=== PATIENT | female | born 1960 | race Caucasian/White ===

== ENCOUNTER 2018-09-03 21:13 | Observation (INO) ==
[2018-09-03 21:50] LABS: Basophils % 0.3 % (0.1-2.0); Eosinophils # 0.4 K/mm3 (0.0-0.4); Eosinophils % 4.8 % (0.1-12.0); Hematocrit 39.3 % (37.0-47.0); Hemoglobin 12.6 g/dL (12.2-16.2); Lymphocytes # 2.7 K/mm3 (0.7-4.5); Mean Corpuscular HGB Conc 32.2 g/dL (31.8-35.4); Mean Corpuscular Volume 85.1 fl (81-99); Mean Platelet Volume 7.3 fl (7.4-10.4); Monocytes # 0.5 K/mm3 (0.1-1.0); Monocytes % 6.1 % (1.7-9.3); Neutrophils # 4.2 K/mm3 (1.8-7.8); Neutrophils % 53.8 % (37.0-80.0); Platelet Count 234 K/mm3 (142-424); Red Blood Count 4.61 M/mm3 (4.20-5.40); Red Cell Distribution Width 13.4 % (11.5-17.5); White Blood Count 7.7 K/mm3 (4.8-10.8)
--- NOTE | 2018-09-03 21:51 | Emergency Department Note ---
ED Disposition Clinical Impression: Abscess of skin or subcutaneous tissue Qualifiers: Site of cutaneous abscess: other site Qualified Code(s): L02.818 - Cutaneous abscess of other sites Disposition: Admitted as Observation Condition on Discharge: Good Instructions: DI for Skin Abscess Referrals: Provider,Referral, [Primary Care Provider] - - Critical Care Critical Care Time: No Attestation: On 09/03/18, the high probability of a clinically significant, sudden or life threatening deterioration of the following system(s) required my full and direct attention, intervention and personal management. The time I documented below is in addition to time spent performing reported procedures but includes the following listed in this critical care notation. Medical Decision Making - Medical Records Medical records reviewed: Yes: I reviewed the patient's medical records. - [place] Inquiry Pt receiving controlled substance: No Vital Signs: 09/03/18 21:22 09/03/18 21:54 Temperature 98.0 F Temperature Source Oral Pulse Rate [Right Radial] 77 Respiratory Rate 18 Blood Pressure [Right Arm] 218/112 H 160/80 H Blood Pressure Mean [Right Arm] 147 106 Blood Pressure Source [Right Arm] Manual Cuff/ Auscultation 02 Sat by Pulse Oximetry 97 - Lab Data Lab results reviewed: Yes: I reviewed the patient's lab results. Lab Results 09/03/18 21:30: WBC 7.7, RBC 4.61, Hgb 12.6, Hct 39.3, MCV 85.1, MCH 27.4, MCHC 32.2, RDW 13.4, Plt Count 234, MPV 7.3 L, Neut % (Auto) 53.8, Lymph % (Auto) 35.0, Wolfe % (Auto) 6.1, Eos % (Auto) 4.8, Baso % (Auto) 0.3, Neut # (Auto) 4.2, Lymph # (Auto) 2.7, Wolfe # (Auto) 0.5, Eos # (Auto) 0.4, Baso # (Auto) 0.0 Result diagrams: 09/03/18 21:30 Orders (Tests/Meds): ED MEDICATIONS Generic Name Dose Route Start Last Admin Trade Name Freq PRN Reason Stop Dose Admin Sodium Chloride 1,000 mls @ 999 mls/hr 09/03/18 21:30 09/03/18 21:36 Sod Chlor 0.9% 1000ml Bag IV 09/03/18 22:30 999 mls/hr .Q1H1M GUILLERMINA Administration ORDERS Category Date Time Status C-Reactive Protein Stat Lab 09/03/18 21:30 Received Complete Blood Count Auto Diff Stat Lab 09/03/18 21:30 Results Comprehensive Metabolic Panel Stat Lab 09/03/18 21:30 Received Erythrocyte Sedimentation Rate Stat Lab 09/03/18 21:30 Results Lactic Acid Stat Lab 09/03/18 21:30 Received Blood Culture Stat Micro 09/03/18 21:36 Received - Physician Consults Physician Consulted: otf Reason -: Admission Skin/Abscess/FB HPI - General Chief complaint: Skin/Abscess/Foreign Body Stated complaint: spot on breast Time Seen by Provider: 09/03/18 21:30 Mode of Arrival: Ambulatory Source of Information: Patient, Relative, Medical Record Limitations: No Limitations Description of Symptoms (Recalled from ER Triage Doc. by RN): left breast redness, swelling and pain. pt states this has been going on for approx 1 week but today the site "opened up." - History of Present Illness HPI narrative: lt breast reddness and tenderness with sl drainge - has had in past - improved with abx - neg mammogram last yr and has chronic inverted nipple MD complaint: abscess/boil Onset (ago): day(s) Tetanus up to date: unsure Location: chest (lt breast ) Severity: moderate Associated symptoms: denies other symptoms Treatments prior to arrival: none - Related Data Home Medications Medication Instructions Recorded Confirmed Beclomethasone Dipropionate [Qvar 1 - 2 puffs IH NEEDED PRN 09/03/18 09/03/18 Redihaler] Cetirizine HCl 10 mg PO DAILY 09/03/18 09/03/18 Enalapril Maleate 2.5 mg PO BID 09/03/18 09/03/18 Fluticasone/Salmeterol [Advair 1 inh IH BID 09/03/18 09/03/18 250/50mcg Diskus] Metoprolol Tartrate [Lopressor 25 mg PO BID 09/03/18 09/03/18 25mg tablet] Montelukast Sodium [Montelukast 10 mg PO DAILY 09/03/18 09/03/18 10mg Tab] Pantoprazole Sodium [Protonix 20mg 20 mg PO DAILY 09/03/18 09/03/18 Tab] hydroCHLOROthiazide 12.5 mg PO DAILY 09/03/18 09/03/18 [Hydrochlorothiazide 12.5mg Tab] Allergies Allergy/AdvReac Type Severity Reaction Status Date / Time loratadine [From CLARITIN] Allergy Unknown Verified 09/03/18 21:26 [facility] History - Hepatitis A Screen Drug use history?: No High risk sexual behaviors?: No History of sexually transmitted infection?: No Currently employed?: No Childcare worker?: No Do you have indoor plumbing?: Yes Do you have electricity?: Yes Attestation statement:: This patient has been screened for Hepatitis A risk factors. I have reviewed the patient's past medical history: Yes Medical History: Denies:: Diabetes Mellitus Type 1, Diabetes Mellitus Type 2 - Social History Smoking Status: Current every day smoker # Packs/Day (cigarettes): 1 Alcohol Intake: never Occupational Status: unemployed ROS Obtained: Yes All systems reviewed & no additional complaints - Constitutional Constitutional: Denies fever(s) - Eyes Eyes: Denies change in vision - ENT Ears, Nose, Mouth, and Throat: Denies sore throat - Cardiovascular Cardiovascular: Denies chest pain - Respiratory Respiratory: No cough - Gastrointestinal Gastrointestingal: Denies: abdominal pain - Genitourinary Female Genitourinary: Denies hematuria - Musculoskeletal Musculoskeletal: Denies joint pain - Integumentary/Breasts Skin/Breast: Reports as per HPI, Reports boil, Reports rash - Neurologic Neurologic: Denies seizure-like activity Physical Exam - General General appearance: alert - Head Head exam: normocephalic - Eye Eye exam: Present: PERRL, EOMI - ENT ENT exam: Present: normal oropharynx - Neck Neck exam: Absent: trachea midline - Respiratory Respiratory exam: Absent: respiratory distress - Cardiovascular Cardiovascular exam: Present: regular rate - Extremities Exam Extremities exam: Present: full ROM - Neurological Exam Neurological exam: Present: alert, oriented X3, CN II-XII intact - Psychiatric Psychiatric exam: Present: normal affect - Skin Skin exam: Present: other (tender lt breast with 2x2 abscess -)
[2018-09-03 22:06] LABS: Albumin Level 3.5 gm/dL (3.4-5.0); Albumin/Globulin Ratio 1.2 (1.1-1.8); Bilirubin,Total 0.7 mg/dL (0.2-1.0); C-Reactive Protein 0.4 mg/L (0.0-0.9); Globulin 2.9 gm/dl (1.3-3.2); Total Protein,Serum 6.4 gm/dL (6.4-8.2)
[2018-09-03 22:43] LABS: Erythrocyte Sedimentation Rate 31 mm/hr (0-30)
[2018-09-04 05:59] LABS: Basophils % 0.4 % (0.1-2.0); Eosinophils # 0.3 K/mm3 (0.0-0.4); Eosinophils % 5.4 % (0.1-12.0); Hematocrit 34.5 % (37.0-47.0); Hemoglobin 11.3 g/dL (12.2-16.2); Lymphocytes # 2.1 K/mm3 (0.7-4.5); Lymphocytes % 34.3 % (10-50); Mean Corpuscular HGB Conc 32.8 g/dL (31.8-35.4); Mean Corpuscular Volume 86.6 fl (81-99); Mean Platelet Volume 7.1 fl (7.4-10.4); Monocytes # 0.4 K/mm3 (0.1-1.0); Monocytes % 7.4 % (1.7-9.3); Neutrophils # 3.2 K/mm3 (1.8-7.8); Neutrophils % 52.5 % (37.0-80.0); Platelet Count 184 K/mm3 (142-424); Red Blood Count 3.98 M/mm3 (4.20-5.40); Red Cell Distribution Width 13.4 % (11.5-17.5)
[2018-09-04 06:07] LABS: Anion Gap 10.7 mEq/L (5-15); Calcium 8.7 mg/dL (8.5-10.1)
--- NOTE | 2018-09-04 08:27 | Pharmacy Consult Notes ---
- Pharmacy Consult Date: 09/04/18 Time: 08:25 Referring provider: DR. VILLARREAL Reason for Consult:: VANCOMYCIN DOSING Allergies and ADEs:: Allergies Allergy/AdvReac Type Severity Reaction Status Date / Time peanut Allergy Severe Difficulty Verified 09/04/18 03:00 Breathing loratadine [From CLARITIN] Allergy Unknown Verified 09/03/18 21:26 corn Allergy Verified 09/04/18 03:00 tomato Allergy Verified 09/04/18 03:00 Home Medications:: Home Medications Medication Instructions Recorded Confirmed Type Beclomethasone Dipropionate [Qvar 1 - 2 puffs IH NEEDED PRN 09/03/18 09/04/18 History Redihaler] Cetirizine HCl 10 mg PO HS 09/03/18 09/04/18 History Enalapril Maleate 2.5 mg PO BID 09/03/18 09/03/18 History Fluticasone/Salmeterol [Advair 1 inh IH BID 09/03/18 09/04/18 History 250/50mcg Diskus] Metoprolol Tartrate [Lopressor 25 mg PO BID 09/03/18 09/03/18 History 25mg tablet] Montelukast Sodium [Montelukast 10 mg PO DAILY 09/03/18 09/04/18 History 10mg Tab] Pantoprazole Sodium [Protonix 20mg 40 mg PO BID 09/03/18 09/03/18 History Tab] hydroCHLOROthiazide 12.5 mg PO DAILY 09/03/18 09/03/18 History [Hydrochlorothiazide 12.5mg Tab] Height: 1.7 m Weight: 73.567 kg Laboratory Results:: Laboratory Results - last 24 hr 09/03/18 21:30: WBC 7.7, RBC 4.61, Hgb 12.6, Hct 39.3, MCV 85.1, MCH 27.4, MCHC 32.2, RDW 13.4, Plt Count 234, MPV 7.3 L, Neut % (Auto) 53.8, Lymph % (Auto) 35.0, [place] % (Auto) 6.1, Eos % (Auto) 4.8, Baso % (Auto) 0.3, Neut # (Auto) 4.2, Lymph # (Auto) 2.7, [place] # (Auto) 0.5, Eos # (Auto) 0.4, Baso # (Auto) 0.0, ESR 31 H 09/03/18 21:30: Sodium 143, Potassium 4.0, Chloride 106, Carbon Dioxide 27, Anion Gap 14.0, BUN 23 H, Creatinine 0.73, Estimated Creat Clear 87, Estimated GFR 82, Est GFR ( Amer) 99, Glucose 108 H, Calcium 9.0, Total Bilirubin 0.7, AST 26, ALT 46, Alkaline Phosphatase 99, C-Reactive Protein 0.4, Total Protein 6.4, Albumin 3.5, Globulin 2.9, Albumin/Globulin Ratio 1.2 09/03/18 21:30: Lactate 0.5 09/04/18 05:15: WBC 6.0, RBC 3.98 L, Hgb 11.3 L D, Hct 34.5 L, MCV 86.6, MCH 28.4, MCHC 32.8, RDW 13.4, Plt Count 184, MPV 7.1 L, Neut % (Auto) 52.5, Lymph % (Auto) 34.3, [place] % (Auto) 7.4, Eos % (Auto) 5.4, Baso % (Auto) 0.4, Neut # (Auto) 3.2, Lymph # (Auto) 2.1, [place] # (Auto) 0.4, Eos # (Auto) 0.3, Baso # (Auto) 0.0 09/04/18 05:15: Sodium 142, Potassium 3.7, Chloride 109 H, Carbon Dioxide 26, Anion Gap 10.7, BUN 17 D, Creatinine 0.66, Estimated Creat Clear 108, Estimated GFR 92, Est GFR ( Amer) 111, Glucose 132 H D, Calcium 8.7 Medical History: Reports:: Hypertension Denies:: Cancer, Diabetes Mellitus Type 1, Diabetes Mellitus Type 2, MRSA Assessment and Plan - Assessment and plan all Dx Assessment and Plan for all problems:: BASED ON PATIENT'S FACTORS, RECOMMEND CONTINUING WITH VANCOMYCIN 1500 MG Q12H AT THIS TIME STARTING WITH 0900 DOSE. PHARMACY WILL FOLLOW DAILY AND ADJUST APPROPRIATE. LISSETTE SKINNER, PHARMD
--- NOTE | 2018-09-04 09:00 | History & Physical Report ---
*Admission Date: 09/04/18 <Estela Childress 09/04/18 09:08> *Chief complaint: Breast abscess <Estela Childress 09/04/18 09:08> *History of present illness: Ms. Vega is a 58-year-old female from [facility] who is visiting her children here in [place] She began having left breast inflammation last week. She was on vacation at [place] and continued on with her normal activities without problems. After returning to [place] the left breast became sore, red, and began to drain. With the increase in pain and with the drainage she thus presented to the emergency room. She does give a history of having previous breast abscess in the same place over the last few years. She is usually treated with p.o. antibiotics and it resolves. She was evaluated in the emergency room and admitted for further evaluation and treatment with a surgical consult. She was started on IV vancomycin. This a.m. the redness and the pain is a little bit better. <Estela Childress 09/04/18 09:08> [facility] History Medical History: Reports:: Gastroesophageal Reflux Disease(GERD), Hypertension, Palpitations Denies:: Cancer, Chronic Obstructive Pulmonary Disease (COPD), Diabetes Mellitus Type 1, Diabetes Mellitus Type 2, MRSA <Estela Childress 09/04/18 09:08> *Have you ever received a pneumonia vaccine?: No <Estela Childress 09/04/18 09:08> *Have you received a flu vaccine this season?: No <Estela Childress 09/04/18 09:08> Other Medical History: Reports: Thyroid Disease (GOITER) <Estela Childress 09/04/18 09:08> Comment:: She has environmental allergies and frequent sinusitis <Estela Childress 09/04/18 09:08> Laterality Cases: Bilateral: Tonsillectomy <Estela Childress 09/04/18 09:08> Other Surgeries: Yes: Appendectomy, Dilation and Curettage, Hysterectomy-Partial <Estela Childress 09/04/18 09:08> Comment: She has had 2 ear surgeries <Estela Childress 09/04/18 09:08> - *Social History Educational Level: Completed High School <Estela Childress 07/22/19 09:08> Smoking Status: Current every day smoker <Estela Childress 09/04/18 09:08> # Packs/Day (cigarettes): 1 <Estela Childress 09/04/18 09:08> Alcohol Intake: current <Estela Childress 09/04/18 09:08> Alcohol Intake Frequency:: holidays/special occasions only <ChildressEstela 09/04/18 09:08> *Occupational Status:: unemployed, retired, disabled <FiorEstela Gregg 09/04/18 09:08> Housing: house <FiorEstela 09/04/18 09:08> Household Members: none <ChildressEstela Gregg 09/04/18 09:08> *Travel in the last 8 weeks: Inside the [place] <ChildressEstela 09/04/18 09:08> - Psychiatric History Expresses thoughts of harming self/others: None <Childress,Estela 09/04/18 09:08> Suicide Plan Description: No Plan <Estela Childress 09/04/18 09:08> Family Hx:: Anemia, Asthma, Cancer, Diabetes, Heart Attack, Hypertension, Kidney Disease, Stroke, Thyroid Disorder <ChildressEstela 09/04/18 09:08> Review of Systems - Constitutional Denies body ache(s), Denies chills, Denies fever(s), Denies headache(s) <FiorEstela 09/04/18 09:08> - ENT Denies ear pain, Denies headache(s), Denies nasal congestion <Childress,Estela 09/04/18 09:08> Comments: States she had a sinusitis while on vacation which is better now <FiorEstela 09/04/18 09:08> - *Cardiovascular Denies chest pain, Denies shortness of breath, Denies leg swelling <FiorEstela 09/04/18 09:08> - *Respiratory Denies chest congestion, Denies cough, Denies shortness of breath, Denies shortness of breath with activity, Denies coughing up blood <FiorEstela 09/04/18 09:08> - *Gastrointestinal Reports heartburn (States she has terrible heartburn with reflux. Takes a daily PPI), Denies abdominal pain, Denies change in stools, Denies nausea, Denies vom iting <ChildressEstela - 09/04/18 09:08> - *Genitourinary Denies difficulty urinating <FiorEstela - 09/04/18 09:08> - *Musculoskeletal Denies abnormal walking <Estela Childress - 09/04/18 09:08> - *Neurologic Denies behavioral changes, Denies dizziness, Denies seizure-like activity <FiorEstela - 09/04/18 09:08> Meds Home Medications Medication Instructions Recorded Confirmed Type Beclomethasone Dipropionate [Qvar 1 puffs IH BID 09/03/18 09/04/18 History Redihaler] Cetirizine HCl 10 mg PO HS 09/03/18 09/04/18 History Enalapril Maleate 2.5 mg PO BID 09/03/18 09/03/18 History Fluticasone/Salmeterol [Advair 1 inh IH BID 09/03/18 09/04/18 History 250/50mcg Diskus] Metoprolol Tartrate [Lopressor 25 mg PO BID 09/03/18 09/03/18 History 25mg tablet] Montelukast Sodium [Montelukast 10 mg PO DAILY 09/03/18 09/04/18 History 10mg Tab] Pantoprazole Sodium [Protonix 20mg 40 mg PO BID 09/03/18 09/03/18 History Tab] hydroCHLOROthiazide 12.5 mg PO DAILY 09/03/18 09/03/18 History [Hydrochlorothiazide 12.5mg Tab] Albuterol Sulfate [Albuterol 1 - 2 puffs IH Q4HP PRN 09/04/18 09/04/18 History Sulfate Hfa] Meloxicam 15 mg PO DAILY 09/04/18 09/04/18 History SUMAtriptan succinate [Imitrex 25 mg PO DAILYP PRN 09/04/18 09/04/18 History 25mg Tablet] <Sarmad Matthews - 09/04/18 12:33> Allergies Allergy/AdvReac Type Severity Reaction Status Date / Time peanut Allergy Severe Difficulty Verified 09/04/18 03:00 Breathing loratadine [From CLARITIN] Allergy Unknown Verified 09/03/18 21:26 corn Allergy Verified 09/04/18 03:00 tomato Allergy Verified 09/04/18 03:00 <Sarmad Matthews - 09/04/18 12:33> Exam Vital signs and Labs for Last 24 Hours: Temp Pulse Resp BP Pulse Ox 98.0 F 70 16 150/84 H 93 L 09/04/18 12:15 09/04/18 12:15 09/04/18 12:15 09/04/18 12:15 09/04/18 12:15 Laboratory Results - last 24 hr 09/03/18 21:30: WBC 7.7, RBC 4.61, Hgb 12.6, Hct 39.3, MCV 85.1, MCH 27.4, MCHC 32.2, RDW 13.4, Plt Count 234, MPV 7.3 L, Neut % (Auto) 53.8, Lymph % (Auto) 35.0, [place] % (Auto) 6.1, Eos % (Auto) 4.8, Baso % (Auto) 0.3, Neut # (Auto) 4.2, Lymph # (Auto) 2.7, [place] # (Auto) 0.5, Eos # (Auto) 0.4, Baso # (Auto) 0.0, ESR 31 H 09/03/18 21:30: Sodium 143, Potassium 4.0, Chloride 106, Carbon Dioxide 27, Anion Gap 14.0, BUN 23 H, Creatinine 0.73, Estimated Creat Clear 87, Estimated GFR 82, Est GFR ( Amer) 99, Glucose 108 H, Calcium 9.0, Total Bilirubin 0.7, AST 26, ALT 46, Alkaline Phosphatase 99, C-Reactive Protein 0.4, Total Protein 6.4, Albumin 3.5, Globulin 2.9, Albumin/Globulin Ratio 1.2 09/03/18 21:30: Lactate 0.5 09/04/18 05:15: WBC 6.0, RBC 3.98 L, Hgb 11.3 L D, Hct 34.5 L, MCV 86.6, MCH 28.4, MCHC 32.8, RDW 13.4, Plt Count 184, MPV 7.1 L, Neut % (Auto) 52.5, Lymph % (Auto) 34.3, [place] % (Auto) 7.4, Eos % (Auto) 5.4, Baso % (Auto) 0.4, Neut # (Auto) 3.2, Lymph # (Auto) 2.1, [place] # (Auto) 0.4, Eos # (Auto) 0.3, Baso # (Auto) 0.0 09/04/18 05:15: Sodium 142, Potassium 3.7, Chloride 109 H, Carbon Dioxide 26, Anion Gap 10.7, BUN 17 D, Creatinine 0.66, Estimated Creat Clear 108, Estimated GFR 92, Est GFR ( Amer) 111, Glucose 132 H D, Calcium 8.7 <Sarmad Matthews - 09/04/18 12:33> Temp Pulse Resp BP Pulse Ox 97.8 F 65 20 152/59 H 97 09/04/18 08:00 09/04/18 08:00 09/04/18 08:00 09/04/18 08:00 09/04/18 08:00 Laboratory Results - last 24 hr 09/03/18 21:30: WBC 7.7, RBC 4.61, Hgb 12.6, Hct 39.3, MCV 85.1, MCH 27.4, MCHC 32.2, RDW 13.4, Plt Count 234, MPV 7.3 L, Neut % (Auto) 53.8, Lymph % (Auto) 35.0, [place] % (Auto) 6.1, Eos % (Auto) 4.8, Baso % (Auto) 0.3, Neut # (Auto) 4.2, Lymph # (Auto) 2.7, [place] # (Auto) 0.5, Eos # (Auto) 0.4, Baso # (Auto) 0.0, ESR 31 H 09/03/18 21:30: Sodium 143, Potassium 4.0, Chloride 106, Carbon Dioxide 27, Anion Gap 14.0, BUN 23 H, Creatinine 0.73, Estimated Creat Clear 87, Estimated GFR 82, Est GFR ( Amer) 99, Glucose 108 H, Calcium 9.0, Total Bilirubin 0.7, AST 26, ALT 46, Alkaline Phosphatase 99, C-Reactive Protein 0.4, Total Protein 6.4, Albumin 3.5, Globulin 2.9, Albumin/Globulin Ratio 1.2 09/03/18 21:30: Lactate 0.5 09/04/18 05:15: WBC 6.0, RBC 3.98 L, Hgb 11.3 L D, Hct 34.5 L, MCV 86.6, MCH 28.4, MCHC 32.8, RDW 13.4, Plt Count 184, MPV 7.1 L, Neut % (Auto) 52.5, Lymph % (Auto) 34.3, [place] % (Auto) 7.4, Eos % (Auto) 5.4, Baso % (Auto) 0.4, Neut # ( Auto) 3.2, Lymph # (Auto) 2.1, [place] # (Auto) 0.4, Eos # (Auto) 0.3, Baso # (Auto) 0.0 09/04/18 05:15: Sodium 142, Potassium 3.7, Chloride 109 H, Carbon Dioxide 26, Anion Gap 10.7, BUN 17 D, Creatinine 0.66, Estimated Creat Clear 108, Estimated GFR 92, Est GFR ( Amer) 111, Glucose 132 H D, Calcium 8.7 <FiorEstela - 09/04/18 09:08> I & O for Last 24 hours: Intake & Output 09/01/18 09/02/18 09/03/18 09/04/18 23:59 23:59 23:59 23:59 Intake Total 827 / 827 Output Total 1500 / 1500 Balance -673 / -673 Weight 158 lb 3 oz 162 lb 3 oz <Sarmad Matthews - 09/04/18 12:33> Intake & Output 09/01/18 09/02/18 09/03/18 09/04/18 11:59 11:59 11:59 11:59 Intake Total 527 / 527 Output Total 800 / 800 Balance -273 / -273 Weight 162 lb 3 oz <FiorEstela - 09/04/18 09:08> - Constitutional no acute distress <Estela Childress - 09/04/18 09:08> - *Routine HEENT Exam Head: Present: normocephalic, atraumatic <Estela Childress - 09/04/18 09:08> Eye: Present: PERRL. Absent: conjunctival icterus, scleral injection <Estela Childress - 09/04/18 09:08> ENT: Present: mucous membranes moist, oropharynx clear <Estela Childress 09/04/18 09:08> - *Routine Neck Exam Present: supple, full ROM. Absent: carotid bruit, lymphadenopathy, thyromegaly <Estela Childress 09/04/18 09:08> - *Routine Respiratory Exam Comments: Expiratory wheeze heard in bilateral bases. <Estela Childress 09/04/18 09:08> - *Routine Cardiovascular Exam Present: RRR <Estela Childress 09/04/18 09:08> - *Routine Abdominal Exam Present: soft, normoactive bowel sounds. Absent: tenderness, distended <Estela Childress 09/04/18 09:08> - *Routine Extremities Exam Absent: edema, calf tenderness <Estela Childress 09/04/18 09:08> - *Routine Skin Exam Comments: At approximately the 10 o'clock position in the periareolar location of the left breast there is a an area of a small pustule which is somewhat fluctuant. There is surrounding induration in the regional subareolar location with some cellulitis. <Estela Childress 09/04/18 09:12> - *Routine Neurological Exam Present: alert, oriented X3 <Estela Childress 09/04/18 09:08> Assessment and Plan (1) GERD (gastroesophageal reflux disease) Current visit: Yes Status: Acute Category: Medical Code(s): K21.9 - Gastro-esophageal reflux disease without esophagitis (2) Abscess of skin or subcutaneous tissue Current visit: Yes Status: Acute Qualifiers: Site of cutaneous abscess: other site Qualified Code(s): L02.818 - Cutaneous abscess of other sites Category: Medical Code(s): L02.91 - Cutaneous abscess, unspecified <[place]Sarmad hess - 09/04/18 12:33> (1) GERD (gastroesophageal reflux disease) Current visit: Yes Status: Acute Category: Medical Code(s): K21.9 - Gastro-esophageal reflux disease without esophagitis (2) Abscess of skin or subcutaneous tissue Current visit: Yes Status: Acute Qualifiers: Site of cutaneous abscess: other site Qualified Code(s): L02.818 - Cutaneous abscess of other sites Category: Medical Code(s): L02.91 - Cutaneous abscess, unspecified <Estela Childress - 09/04/18 09:10> - Assessment and plan all Dx Assessment and Plan for all problems:: Saw patient, agree with above note. <Sarmad Matthews - 09/04/18 12:33> See Dr. Luciano consult note. He plans I and D with biopsy today. Continue with IV vancomycin Patient states mammogram is due with the last being approximately a year ago <Estela Childress - 09/04/18 09:12>
--- NOTE | 2018-09-04 09:05 | Consult Report ---
*Admission Date: 09/04/18 *Reason for consult:: Breast abscess *History of present illness: Patient is a pleasant 58-year-old female who is visiting from [facility]. 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 She has apparently undergone thorough work-up with imaging done at [facility] which revealed no radiographic findings. This is usually been treated with courses of antibiotics. She states that this is the third time she has had a flareup. She is recently had increased redness and swelling. She had developed some drainage. She presented to the emergency dep artment overnight where she was seen and evaluated and admitted for inpatient management. Review of Systems - Review of Systems Review of systems:: pertinent systems reviewed and negative unless documented below - *Neurologic Denies seizure-like activity [facility] History Medical History: Reports:: Hypertension Denies:: Cancer, Diabetes Mellitus Type 1, Diabetes Mellitus Type 2, MRSA *Have you ever received a pneumonia vaccine?: No *Have you received a flu vaccine this season?: No Other Medical History: Reports: Thyroid Disease (GOITER) Laterality Cases: Bilateral: Tonsillectomy Other Surgeries: Yes: Appendectomy, Dilation and Curettage, Hysterectomy-Partial - *Social History Educational Level: Completed High School Smoking Status: Current every day smoker # Packs/Day (cigarettes): 1 Alcohol Intake: current Alcohol Intake Frequency:: holidays/special occasions only *Occupational Status:: unemployed, retired, disabled Housing: house Household Members: none *Travel in the last 8 weeks: Inside the [facility] - Psychiatric History Expresses thoughts of harming self/others: None Suicide Plan Description: No Plan Family Hx:: Anemia, Asthma, Cancer, Diabetes, Heart Attack, Hypertension, Kidney Disease, Stroke, Thyroid Disorder Meds Home Medications Medication Instructions Recorded Confirmed Type Beclomethasone Dipropionate [Qvar 1 - 2 puffs IH NEEDED PRN 09/03/18 09/04/18 History Redihaler] Cetirizine HCl 10 mg PO HS 09/03/18 09/04/18 History Enalapril Maleate 2.5 mg PO BID 09/03/18 09/03/18 History Fluticasone/Salmeterol [Advair 1 inh IH BID 09/03/18 09/04/18 History 250/50mcg Diskus] Metoprolol Tartrate [Lopressor 25 mg PO BID 09/03/18 09/03/18 History 25mg tablet] Montelukast Sodium [Montelukast 10 mg PO DAILY 09/03/18 09/04/18 History 10mg Tab] Pantoprazole Sodium [Protonix 20mg 40 mg PO BID 09/03/18 09/03/18 History Tab] hydroCHLOROthiazide 12.5 mg PO DAILY 09/03/18 09/03/18 History [Hydrochlorothiazide 12.5mg Tab] Allergies Allergy/AdvReac Type Severity Reaction Status Date / Time peanut Allergy Severe Difficulty Verified 09/04/18 03:00 Breathing loratadine [From CLARITIN] Allergy Unknown Verified 09/03/18 21:26 corn Allergy Verified 09/04/18 03:00 tomato Allergy Verified 09/04/18 03:00 Exam Vital signs and Labs for Last 24 Hours: Temp Pulse Resp BP Pulse Ox 97.8 F 65 20 152/59 H 97 09/04/18 08:00 09/04/18 08:00 09/04/18 08:00 09/04/18 08:00 09/04/18 08:00 Laboratory Results - last 24 hr 09/03/18 21:30: WBC 7.7, RBC 4.61, Hgb 12.6, Hct 39.3, MCV 85.1, MCH 27.4, MCHC 32.2, RDW 13.4, Plt Count 234, MPV 7.3 L, Neut % (Auto) 53.8, Lymph % (Auto) 35.0, [place] % (Auto) 6.1, Eos % (Auto) 4.8, Baso % (Auto) 0.3, Neut # (Auto) 4.2, Lymph # (Auto) 2.7, [place] # (Auto) 0.5, Eos # (Auto) 0.4, Baso # (Auto) 0.0, ESR 31 H 09/03/18 21:30: Sodium 143, Potassium 4.0, Chloride 106, Carbon Dioxide 27, Anion Gap 14.0, BUN 23 H, Creatinine 0.73, Estimated Creat Clear 87, Estimated GFR 82, Est GFR ( Amer) 99, Glucose 108 H, Calcium 9.0, Total Bilirubin 0.7, AST 26, ALT 46, Alkaline Phosphatase 99, C-Reactive Protein 0.4, Total Prot ein 6.4, Albumin 3.5, Globulin 2.9, Albumin/Globulin Ratio 1.2 09/03/18 21:30: Lactate 0.5 09/04/18 05:15: WBC 6.0, RBC 3.98 L, Hgb 11.3 L D, Hct 34.5 L, MCV 86.6, MCH 28.4, MCHC 32.8, RDW 13.4, Plt Count 184, MPV 7.1 L, Neut % (Auto) 52.5, Lymph % (Auto) 34.3, [place] % (Auto) 7.4, Eos % (Auto) 5.4, Baso % (Auto) 0.4, Neut # (Auto) 3.2, Lymph # (Auto) 2.1, [place] # (Auto) 0.4, Eos # (Auto) 0.3, Baso # (Auto) 0.0 09/04/18 05:15: Sodium 142, Potassium 3.7, Chloride 109 H, Carbon Dioxide 26, Anion Gap 10.7, BUN 17 D, Creatinine 0.66, Estimated Creat Clear 108, Estimated GFR 92, Est GFR ( Amer) 111, Glucose 132 H D, Calcium 8.7 I & O for Last 24 hours: Intake & Output 09/01/18 09/02/18 09/03/18 09/04/18 11:59 11:59 11:59 11:59 Intake Total 527 / 527 Output Total 800 / 800 Balance -273 / -273 Weight 162 lb 3 oz - *Routine HEENT Exam Head: Present: normocephalic Eye: Present: EOMI, PERRL ENT: Present: mucous membranes moist - *Routine Neck Exam Present: supple. Absent: lymphadenopathy - Routine Chest/Breast/Axilla Exam Comments: Left breast area reveals chronic nipple retraction. At approximately the 10 o'clock position in the periareolar location of the left breast there is a an area of a small pustule which is somewhat fluctuant. There is surrounding induration in the regional subareolar location with some cellulitis. - *Routine Respiratory Exam Present: CTA bilaterally - *Routine Cardiovascular Exam Present: RRR - *Routine Abdominal Exam Present: soft, normoactive bowel sounds. Absent: tenderness - *Routine Extremities Exam Absent: cyanosis, clubbing, edema - *Routine Skin Exam Present: warm. Absent: rash - *Routine Neurological Exam Present: alert, oriented X3 - Detailed Eye Exam Eyelids: Left normal inspection Results - Labs 09/04/18 05:15 09/04/18 05:15 Laboratory Results - last 24 hr 09/03/18 21:30: WBC 7.7, RBC 4.61, Hgb 12.6, Hct 39.3, MCV 85.1, MCH 27.4, MCHC 32.2, RDW 13.4, Plt Count 234, MPV 7.3 L, Neut % (Auto) 53.8, Lymph % (Auto) 35.0, [place] % (Auto) 6.1, Eos % (Auto) 4.8, Baso % (Auto) 0.3, Neut # (Auto) 4.2, Lymph # (Auto) 2.7, [place] # (Auto) 0.5, Eos # (Auto) 0.4, Baso # (Auto) 0.0, ESR 31 H 09/03/18 21:30: Sodium 143, Potassium 4.0, Chloride 106, Carbon Dioxide 27, Anion Gap 14.0, BUN 23 H, Creatinine 0.73, Estimated Creat Clear 87, Estimated GFR 82, Est GFR ( Amer) 99, Glucose 108 H, Calcium 9.0, Total Bilirubin 0.7, AST 26, ALT 46, Alkaline Phosphatase 99, C-Reactive Protein 0.4, Total Protein 6.4, Albumin 3.5, Globulin 2.9, Albumin/Globulin Ratio 1.2 09/03/18 21:30: Lactate 0.5 09/04/18 05:15: WBC 6.0, RBC 3.98 L, Hgb 11.3 L D, Hct 34.5 L, MCV 86.6, MCH 28 .4, MCHC 32.8, RDW 13.4, Plt Count 184, MPV 7.1 L, Neut % (Auto) 52.5, Lymph % (Auto) 34.3, [place] % (Auto) 7.4, Eos % (Auto) 5.4, Baso % (Auto) 0.4, Neut # (Auto) 3.2, Lymph # (Auto) 2.1, [place] # (Auto) 0.4, Eos # (Auto) 0.3, Baso # (Auto) 0.0 09/04/18 05:15: Sodium 142, Potassium 3.7, Chloride 109 H, Carbon Dioxide 26, Anion Gap 10.7, BUN 17 D, Creatinine 0.66, Estimated Creat Clear 108, Estimated GFR 92, Est GFR ( Amer) 111, Glucose 132 H D, Calcium 8.7 Assessment and Plan - Assessment and plan all Dx Assessment and Plan for all problems:: I will plan to make arrangements for incision and drainage with biopsy today. Patient understands the nature of the procedure along with associated risks and expected outcome. All questions answered.
--- NOTE | 2018-09-04 09:13 | Pharmacy Consult Notes ---
[facility] Pharmacy VTE Monitoring - Patient Demographics Admission date: 09/04/18 Report Date: 09/04/18 Time: 09:13 Allergies/Adverse Reactions: Patient Allergies peanut Allergy (Severe, Verified 09/04/18 03:00) Difficulty Breathing loratadine [From CLARITIN] Allergy (Unknown, Verified 09/03/18 21:26) corn Allergy (Verified 09/04/18 03:00) tomato Allergy (Verified 09/04/18 03:00) Height: 1.7 m Weight: 73.567 kg Patient Problems: Current Active Problems (Updated 09/03/18 @ 22:17 by Zeb Modi MD) Abscess of skin or subcutaneous tissue (Acute) - VTE Risk Labs: VTE Related Lab Results Hgb 11.3 g/dL (12.2-16.2) L D 09/04/18 05:15 Hct 34.5 % (37.0-47.0) L 09/04/18 05:15 Plt Count 184 K/mm3 (142-424) 09/04/18 05:15 BUN 17 mg/dL (7-18) D 09/04/18 05:15 Creatinine 0.66 mg/dL (0.55-1.02) 09/04/18 05:15 Estimated Creat Clear 108 mL/min (50-200) 09/04/18 05:15 Was VTE Risk Assessment Performed: Yes VTE Score: 2 VTE Risk Level: Very Low Risk Clinical Trial Participant: No - Prophylaxis VTE Prophylaxis Ordered?: Yes Types of VTE Prophylaxis: TEDS Knee High
--- NOTE | 2018-09-04 11:26 | Operative Note ---
Date of procedure: 09/04/18 Pre-op Diagnosis:: Left breast abscess Post-op Diagnosis:: Same Procedure performed:: Incision and drainage and debridement of left breast abscess Surgeon:: Ady Luciano MD RUBBER C[employer]TING MACHINE TENDER:: Bernabe Andres Anesthesia: LMA Estimated blood loss (mL): 10 Clinical Note:: Patient is a pleasant 58-year-old female who is visiting from [facility]. 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 She has apparently undergone thorough work-up with imaging done at [facility] which revealed no radiographic findings. This is usually been treated with courses of antibiotics. She states that this is the third time she has had a flareup. She is recently had increased redness and swelling. She had developed some drainage. She presented to the emergency department overnight where she was seen and evaluated and admitted for inpatient management. Operative findings:: Consistent with infected sebaceous cyst Operative note:: Patient was taken to the operating room. General anesthesia was induced via LMA. The area was prepped and draped in the standard surgical fashion. With minimal manipulation of the abscess it exuded purulent caseous material consistent with abscessed ruptured sebaceous cyst. Cultures were obtained. Limited crescent-shaped elliptical incision was made overlying the area of fluctuance and skin and underlying tissue was debrided and sent for histopathologic analysis. There was some caseous material and what appeared to be inflamed tissues which was sent along with the specimen to rule out neoplasm, although very unlikely. The abscess cavity was probed with a hemostat. Wound was irrigated. Local anesthetic was infiltrated. Abscess cavity was packed with quarter inch plain packing gauze and covered with clean dry sterile dressing. Condition: stable Disposition: PACU Specimens:: Cultures sent. Tissue for histopathologic analysis Complications:: None
--- NOTE | 2018-09-04 11:32 | Progress Note ---
[facility] Anesthesia Checklist - Patient Identification Patient Identification: Arm Band, Verbal (Name & ) - Structural Data Admitted From: Inpatient Planned Operative Procedure/s: i and d Consent for Planned Operative Procedure(s) Verified: Yes Verified Documents: History and Physical - NPO Status Verified Time NPO: 00:00 - Additional verifications Patient : No Anesthesia Reactions: No Hx Blood Transfusions: No Blood Transfusion Reaction: No Cephalosporin Allergy: No Previous Colonoscopy: No - Cardiovascular Assessment Heart Sounds: S1 & S2 Pulse Strength: Baseline Pulse Rhythm: Regular Peripheral Edema: No - Airway Assessment C-Spine Mobility Assessed: Yes TMJ Mobility Assessed: Yes Dentition: Good Dentition - Neurological Assessment Level of Consciousness: Awake, Alert, Appropriate Hx Seizures: No Numbness or tingling in extremities: No - Anesthesia Plan Anesthesia Risk discussed: Yes Anesthesia Plan: Verified ASA Class: II Anesthesia Type: General [facility] History I have reviewed the patient's past medical history: Yes Medical History: Reports:: Gastroesophageal Reflux Disease(GERD), Hypertension, Palpitations Denies:: Cancer, Chronic Obstructive Pulmonary Disease (COPD), Diabetes Mellitus Type 1, Diabetes Mellitus Type 2, MRSA *Have you ever received a pneumonia vaccine?: No *Have you received a flu vaccine this season?: No Other Medical History: Reports: Thyroid Disease (GOITER) Laterality Cases: Bilateral: Tonsillectomy Other Surgeries: Yes: Appendectomy, Dilation and Curettage, Hysterectomy-Partial Amputation: No Fractures: No - *Social History Educational Level: Completed High School Smoking Status: Current every day smoker # Packs/Day (cigarettes): 1 Alcohol Intake: current Alcohol Intake Frequency:: holidays/special occasions only Substance Use Type: other *Occupational Status:: unemployed, retired, disabled Housing: house Household Members: none *Travel in the last 8 weeks: Inside the [place] - Psychiatric History Expresses thoughts of harming self/others: None Suicide Plan Description: No Plan Family Hx:: Anemia, Asthma, Cancer, Diabetes, Heart Attack, Hypertension, Kidney Disease, Stroke, Thyroid Disorder
--- NOTE | 2018-09-04 11:33 | Progress Note ---
[facility] Anesthesia Record Part II Discharge Time: 12:00 Destination: Medical Surgical Department PACU nurse assessment reviewed?: Yes Patient Condition:: Good Anesthesia Complications:: None Swallowing reflex intact?: Yes Cyanosis?: No
--- NOTE | 2018-09-04 11:33 | Progress Note ---
[facility] Anesthesia Record Part I Intake, IV Amount: 300 Estimated blood loss (mL): 10 Urine output (mL): 0 Blood Products used (#): none Blood Pressure: 136/63 SaO2: 99 Pulse Rate: 64 Respiratory Rate: 18 Temperature: 98.1 F Patient is:: Mask O2, Stable Stable to PACU at:: 11:30
--- NOTE | 2018-09-05 08:32 | Progress Note ---
<Estela Childress - Last Filed: 09/05/18 08:27> Internal Medicine - PN: Subj *Date: 09/05/18 *Time: 08:27 Interval history: Patient is feeling better today. Has pain with dressing changes and otherwise is comfortable. She states her left breast is just sore. She did sleep last night. She is eating well. She ambulates without difficulty. She is voiding QS. She denies shortness of breath. She is doing well without smoking. She states she has quit. Exam Vital signs and Labs for Last 24 Hours: Temp Pulse Resp BP Pulse Ox 97.8 F 78 20 162/80 H 96 09/05/18 08:04 09/05/18 08:04 09/05/18 08:04 09/05/18 08:04 09/05/18 08:04 I & O for Last 24 hours: Intake & Output 09/02/18 09/03/18 09/04/18 09/05/18 11:59 11:59 11:59 11:59 Intake Total 827 / 827 1735 / 1735 Output Total 1500 / 1500 3050 / 3050 Balance -673 / -673 -1315 / -1315 Weight 162 lb 3 oz 165 lb 2 oz Microbiology Reports for the Last 24 Hours: Microbiology 09/04/18 11:09 Breast,Left - Abscess Gram Stain - Final - Constitutional no acute distress Comments: Sitting up in the bed and appears comfortable. - *Routine Respiratory Exam Comments: She has some scattered wheezing and rhonchi which clear somewhat with cough - *Routine Cardiovascular Exam Present: RRR - *Routine Abdominal Exam Present: soft, normoactive bowel sounds. Absent: tenderness - *Routine Extremities Exam Absent: edema, calf tenderness - *Routine Skin Exam Comments: Left breast wound with packing. Some edema and tenderness. - *Routine Neurological Exam Present: alert, oriented X3 Assessment and Plan (1) GERD (gastroesophageal reflux disease) Current visit: Yes Status: Acute Category: Medical Code(s): K21.9 - Gastro-esophageal reflux disease without esophagitis (2) Abscess of skin or subcutaneous tissue Current visit: Yes Status: Acute Qualifiers: Site of cutaneous abscess: other site Qualified Code(s): L02.818 - Cutaneous abscess of other sites Category: Medical Code(s): L02.91 - Cutaneous abscess, unspecified (3) Status post incision and drainage Current visit: Yes Status: Acute Category: Surgical Code(s): Z98.890 - Other specified postprocedural states (4) Tobacco use disorder Current visit: Yes Status: Acute Category: Medical Code(s): F17.200 - Nicotine dependence, unspecified, uncomplicated - Assessment and plan all Dx Assessment and Plan for all problems:: We will discharge home on antibiotics and dressing changes daily by family. We will follow-up with surgeon or family PCP <Sarmad Matthews - Last Filed: 09/05/18 09:05> Internal Medicine - PN: Subj *Date: 09/05/18 *Time: 09:03 Exam Vital signs and Labs for Last 24 Hours: Temp Pulse Resp BP Pulse Ox 97.8 F 78 20 162/80 H 96 09/05/18 08:04 09/05/18 08:04 09/05/18 08:04 09/05/18 08:04 09/05/18 08:04 I & O for Last 24 hours: Intake & Output 09/02/18 09/03/18 09/04/18 09/05/18 23:59 23:59 23:59 23:59 Intake Total 1547 / 1547 1015 / 1015 Output Total 3000 / 3000 1550 / 1550 Balance -1453 / -1453 -535 / -535 Weight 158 lb 3 oz 162 lb 2.999 oz 165 lb 2 oz Microbiology Reports for the Last 24 Hours: Microbiology 09/04/18 11:09 Breast,Left - Abscess Gram Stain - Final Assessment and Plan (1) GERD (gastroesophageal reflux disease) Current visit: Yes Status: Acute Category: Medical Code(s): K21.9 - Gastro-esophageal reflux disease without esophagitis (2) Abscess of skin or subcutaneous tissue Current visit: Yes Status: Acute Qualifiers: Site of cutaneous abscess: other site Qualified Code(s): L02.818 - Cutaneous abscess of other sites Category: Medical Code(s): L02.91 - Cutaneous abscess, unspecified (3) Status post incision and drainage Current visit: Yes Status: Acute Category: Surgical Code(s): Z98.890 - Other specified postprocedural states (4) Tobacco use disorder Current visit: Yes Status: Acute Category: Medical Code(s): F17.200 - Nicotine dependence, unspecified, uncomplicated - Assessment and plan all Dx Assessment and Plan for all problems:: Saw patient, agree with above note. Will treat with Clindamycin as an outpatient, f/u with Dr. Luciano on 09/11/18
--- NOTE | 2018-09-05 08:40 | Progress Note ---
Subjective Patient reports: feels better Exam Vital signs and Labs for Last 24 Hours: Temp Pulse Resp BP Pulse Ox 97.8 F 78 20 162/80 H 96 09/05/18 08:04 09/05/18 08:04 09/05/18 08:04 09/05/18 08:04 09/05/18 08:04 I & O for Last 24 hours: Intake & Output 09/02/18 09/03/18 09/04/18 09/05/18 11:59 11:59 11:59 11:59 Intake Total 827 / 827 1735 / 1735 Output Total 1500 / 1500 3050 / 3050 Balance -673 / -673 -1315 / -1315 Weight 162 lb 3 oz 165 lb 2 oz Microbiology Reports for the Last 24 Hours: Microbiology 09/04/18 11:09 Breast,Left - Abscess Gram Stain - Final - Constitutional no acute distress - Routine Chest/Breast/Axilla Exam Comments: dressing in place. no spreading cellulitis. Progress Note: A&P (1) GERD (gastroesophageal reflux disease) Status: Acute Current Visit: Yes (2) Abscess of skin or subcutaneous tissue Status: Acute Assessment and plan: improving s/p I&D likely d/c home with ongoing dressing changes and outpatient follow-up Current Visit: Yes (3) Status post incision and drainage Status: Acute Current Visit: Yes
--- NOTE | 2018-09-05 09:32 | Pharmacy Consult Notes ---
- Pharmacy Consult Date: 09/05/18 Time: 09:31 Referring provider: DR. VILLARREAL Reason for Consult:: VANCOMYCIN TROUGH LEVEL Allergies and ADEs:: Allergies Allergy/AdvReac Type Severity Reaction Status Date / Time peanut Allergy Severe Difficulty Verified 09/04/18 03:00 Breathing loratadine [From CLARITIN] Allergy Unknown Verified 09/03/18 21:26 corn Allergy Verified 09/04/18 03:00 tomato Allergy Verified 09/04/18 03:00 Home Medications:: Home Medications Medication Instructions Recorded Confirmed Type Beclomethasone Dipropionate [Qvar 1 puffs IH BID 09/03/18 09/04/18 History Redihaler] Cetirizine HCl 10 mg PO HS 09/03/18 09/04/18 History Enalapril Maleate 2.5 mg PO BID 09/03/18 09/03/18 History Fluticasone/Salmeterol [Advair 1 inh IH BID 09/03/18 09/04/18 History 250/50mcg Diskus] Metoprolol Tartrate [Lopressor 25 mg PO BID 09/03/18 09/03/18 History 25mg tablet] Montelukast Sodium [Montelukast 10 mg PO DAILY 09/03/18 09/04/18 History 10mg Tab] Pantoprazole Sodium [Protonix 20mg 40 mg PO BID 09/03/18 09/03/18 History Tab] hydroCHLOROthiazide 12.5 mg PO DAILY 09/03/18 09/03/18 History [Hydrochlorothiazide 12.5mg Tab] Albuterol Sulfate [Albuterol 1 - 2 puffs IH Q4HP PRN 09/04/18 09/04/18 History Sulfate Hfa] Meloxicam 15 mg PO DAILY 09/04/18 09/04/18 History SUMAtriptan succinate [Imitrex 25 mg PO DAILYP PRN 09/04/18 09/04/18 History 25mg Tablet] Clindamycin HCl [Clindamycin HCl 300 mg PO Q8 #21 cap 09/05/18 Rx 300mg Cap] Height: 1.7 m Weight: 74.899 kg Laboratory Results:: Laboratory Results - last 24 hr 09/05/18 08:53: Vancomycin Trough 12.1 Medical History: Reports:: Gastroesophageal Reflux Disease(GERD), Hypertension, Palpitations Denies:: Cancer, Chronic Obstructive Pulmonary Disease (COPD), Diabetes Mellitus Type 1, Diabetes Mellitus Type 2, MRSA, Seizures Assessment and Plan (1) GERD (gastroesophageal reflux disease) Current visit: Yes Status: Acute Category: Medical Code(s): K21.9 - Gastro-esophageal reflux disease without esophagitis (2) Abscess of skin or subcutaneous tissue Current visit: Yes Status: Acute Qualifiers: Site of cutaneous abscess: other site Qualified Code(s): L02.818 - Cuta neous abscess of other sites Category: Medical Code(s): L02.91 - Cutaneous abscess, unspecified (3) Status post incision and drainage Current visit: Yes Status: Acute Category: Surgical Code(s): Z98.890 - Other specified postprocedural states (4) Tobacco use disorder Current visit: Yes Status: Acute Category: Medical Code(s): F17.200 - Nicotine dependence, unspecified, uncomplicated - Assessment and plan all Dx Assessment and Plan for all problems:: BASED ON VANCOMYCIN TROUGH LEVEL, RECOMMEND CONTINUING VANCOMYCIN 1500 MG IV Q12H. HOWEVER, PATIENT IS BEING DISCHARGED HOME ON PO CLINDAMYCIN.
--- NOTE | 2018-09-05 13:48 | Discharge Summary ---
General - General Admission date:: 09/03/18 Discharge date: 09/05/18 HPI HPI: Ms. Vega is a 58-year-old female from [facility] who is visiting her children here in [place] She began having left breast inflammation last week. She was on vacation at [place] and continued on with her normal activities without problems. After returning to [place] the left breast became sore, red, and began to drain. With the increase in pain and with the drainage she thus presented to the emergency room. She does give a history of having previous breast abscess in the same place over the last few years. She is usually treated with p.o. antibiotics and it resolves. She was evaluated in the emergency room and admitted for further evaluation and treatment with a surgical consult. She was started on IV vancomycin. This a.m. the redness and the pain is a little bit better. Hospital Course Hospital Course: Dr. Luciano was consulted and he planned an I&D with a biopsy. He also recommended to continue IV vancomycin. The procedure was performed on 09/04/2018. Dr. Luciano felt to the findings were consistent with an infected sebaceous cyst. Tissue was sent for histopathologic analysis. The patient did begin feeling better. She did have pain with dressing changes but was otherwise comfortable. She was stable to be discharged home on oral clindamycin as an outpatient and will follow up with both Dr. Luciano and with her primary care provider. Of note, her left breast abscess preliminary culture showed no growth. Blood cultures as well as the final left breast abscess cultures are still pending. Objective Vital signs: Temp Pulse Resp BP Pulse Ox 97.8 F 78 20 162/80 H 96 09/05/18 08:04 09/05/18 08:04 09/05/18 08:04 09/05/18 08:04 09/05/18 08:04 Narrative: - Constitutional no acute distress - *Routine HEENT Exam Head: Present: normocephalic, atraumatic Eye: Present: PERRL. Absent: conjunctival icterus, scleral injection ENT: Present: mucous membranes moist, oropharynx clear - *Routine Neck Exam Present: supple, full ROM. Absent: carotid bruit, lymphadenopathy, thyromegaly - *Routine Respiratory Exam Comments: Expiratory wheeze heard in bilateral bases. - *Routine Cardiovascular Exam Present: RRR - *Routine Abdominal Exam Present: soft, normoactive bowel sounds. Absent: tenderness, distended - *Routine Extremities Exam Absent: edema, calf tenderness - *Routine Skin Exam Comments: At approximately the 10 o'clock position in the periareolar location of the left breast there is a an area of a small pustule which is somewhat fluctuant. There is surrounding induration in the regional subareolar location with some cellulitis. - *Routine Neurological Exam Present: alert, oriented X3 Results Labs on day of discharge: Labs from last 24 hours 09/05/18 08:53 Vancomycin Trough 12.1 Preliminary micro results at discharge 09/04/18 11:09 Abscess Culture - Preliminary Breast,Left - Abscess NO GROWTH AFTER 24 HOURS DS: Diagnosis - Discharge Diagnosis (1) GERD (gastroesophageal reflux disease) Status: Acute (2) Abscess of skin or subcutaneous tissue Status: Acute (3) Status post incision and drainage Status: Acute (4) Tobacco use disorder Status: Acute Discharge Plan - Patient Discharge Instructions ACTIVITY: Continue current activity DIET: continue same diet Patient Instructions: How to Care for a Surgical Wound, DI for Incision and Drainage of a Skin Abscess - Follow up Plan Follow up with: Ady Luciano MD [Staff Physician] - 09/15/18 10:15 am Disposition: Home, Self-Group Home Medications: Home Medications Medication Instructions Recorded Confirmed Type Beclomethasone Dipropionate [Qvar 1 puffs IH BID 09/03/18 09/04/18 History Redihaler] Cetirizine HCl 10 mg PO HS 09/03/18 09/04/18 History Enalapril Maleate 2.5 mg PO BID 09/03/18 09/03/18 History Fluticasone/Salmeterol [Advair 1 inh IH BID 09/03/18 09/04/18 History 250/50mcg Diskus] Metoprolol Tartrate [Lopressor 25 mg PO BID 09/03/18 09/03/18 History 25mg tablet] Montelukast Sodium [Montelukast 10 mg PO DAILY 09/03/18 09/04/18 History 10mg Tab] Pantoprazole Sodium [Protonix 20mg 40 mg PO BID 09/03/18 09/03/18 History Tab] hydroCHLOROthiazide 12.5 mg PO DAILY 09/03/18 09/03/18 History [Hydrochlorothiazide 12.5mg Tab] Albuterol Sulfate [Albuterol 1 - 2 puffs IH Q4HP PRN 09/04/18 09/04/18 History Sulfate Hfa] Meloxicam 15 mg PO DAILY 09/04/18 09/04/18 History SUMAtriptan succinate [Imitrex 25 mg PO DAILYP PRN 09/04/18 09/04/18 History 25mg Tablet] Clindamycin HCl [Clindamycin HCl 300 mg PO Q8 #21 cap 09/05/18 Rx 300mg Cap] Prescriptions/Medication Reconciliation: New Clindamycin HCl [Clindamycin HCl 300mg Cap] 300 mg PO Q8 #21 cap Continued Metoprolol Tartrate [Lopressor 25mg tablet] 25 mg PO BID Fluticasone/Salmeterol [Advair 250/50mcg Diskus] 1 inh IH BID hydroCHLOROthiazide [Hydrochlorothiazide 12.5mg Tab] 12.5 mg PO DAILY Enalapril Maleate 2.5 mg PO BID Cetirizine HCl 10 mg PO HS Beclomethasone Dipropionate [Qvar Redihaler] 1 puffs IH BID Pantoprazole Sodium [Protonix 20mg Tab] 40 mg PO BID SUMAtriptan succinate [Imitrex 25mg Tablet] 25 mg PO DAILYP PRN PRN Reason: MIGRAINES Montelukast Sodium [Montelukast 10mg Tab] 10 mg PO DAILY Meloxicam 15 mg PO DAILY Albuterol Sulfate [Albuterol Sulfate Hfa] 1 - 2 puffs IH Q4HP PRN PRN Reason: Shortness Of Breath
== END 2018-09-05 10:00 | disposition home or self-care (01) ==
LOC: ER 21:13 → 2ND 21:13
PROVIDERS: ADMIT Family Medicine; ATTEND Family Medicine
DX: N61.1 Abscess of the breast and nipple; I10 Essential (primary) hypertension; F17.200 Nicotine dependence, unspecified, uncomplicated; Z79.51 Long term (current) use of inhaled steroids; Z79.899 Other long term (current) drug therapy; K21.9 Gastro-esophageal reflux disease without esophagitis
CPT/HCPCS: 36415; 80048; 80053; 80202; 83605; 85025; 85651; 86140; 87040; 87070; 87075; 87077; 87205; 88304; 96365; 96367; 99284; G0378; J2405; J3370

== ENCOUNTER 2019-09-05 16:29 | Emergency (ER) | payer MEDICAID, SELFPAY ==
[2019-09-05 16:48] VITALS: BP 143/91; PULSE 81; RESP 17; TEMP 36.6; O2SAT 98; BMI 27.4
--- NOTE | 2019-09-05 17:05 | HMH.EDUTC ---
[facility] [place] Clinical Impression: Otitis media Qualifiers: Otitis media type: suppurative Chronicity: acute Laterality: bilateral Recurrence: non-recurrent Spontaneous tympanic membrane rupture: without spontaneous rupture Qualified Code(s): H66.003 - Acute suppurative otitis media without spontaneous rupture of ear drum, bilateral Sinusitis Qualifiers: Sinusitis location: unspecified location Chronicity: acute Recurrence: non-recurrent Qualified Code(s): J01.90 - Acute sinusitis, unspecified Disposition: Home, Self-Care Condition on Discharge: Good Instructions: Sinusitis, Middle Ear Infection, DI for Sinusitis Additional Instructions: Drink plenty of fluids. Take tylenol or ibuprofen for pain or fever. Take the medications as directed. Follow up with your regular doctor. GO TO THE ER FOR ANY WORSENING SYMPTOMS Prescriptions: Amoxicillin/Potassium Clav [Augmentin 875-125 Tablet] 1 tab PO Q12H 10 Days #20 tab Transmission Status: Received by [facility] #[id number] predniSONE [Deltasone 10mg tablet] 10 mg PO BID 4 Days #8 tab Transmission Status: Received by [facility] #[id number] Referrals: PCP,No [Primary Care Provider] - Time of Disposition: 17:10 Medical Decision Making - Medical Records Medical records reviewed: No: I reviewed the patient's medical records. - [place] Inquiry Pt receiving controlled substance: No Vital Signs: 09/05/19 16:48 09/05/19 17:10 Temperature 97.8 F 97.8 F Temperature Source Oral Pulse Rate 81 Pulse Rate [Right Brachial] 81 Respiratory Rate 17 17 Blood Pressure 143/91 H Blood Pressure [Right Arm] 143/91 H Blood Pressure Mean [Right Arm] 108 Blood Pressure Source [Right Arm] Automatic Cuff Blood Pressure Position [Right Arm] Sitting 02 Sat by Pulse Oximetry 98 Oxygen Delivery Method Room Air [facility] [place] HPI - General Stated complaint: Lest ear Time Seen by Provider: 09/05/19 17:05 Mode of Arrival: Ambulatory Source of Information: Patient Limitations: No Limitations Description of Symptoms (Recalled from Triage Doc. by RN): PATIENT C/O LEFT EAR PAIN X 2 DAYS HEENT Symptoms (Recalled from RN notes): Yes Resp Symptoms (Recalled from RN notes): No Skin Symptoms (Recalled from RN notes): No MS Symptoms (Recalled from RN notes): No Functional Status (Recalled from RN notes): WNL - History of Present Illness Provider Complaint: She c/o left ear pain and sinus congestion for the past 3 days. She denies any fever or chills or chest congestion. She denies any exposure to COVID-19 or travel. - Related Data Home Medications Medication Instructions Recorded Confirmed Cetirizine HCl 10 mg PO HS 09/03/18 09/05/19 Fluticasone/Salmeterol [Advair 1 inh IH BID 09/03/18 09/05/19 250/50mcg Diskus] Metoprolol Tartrate [Lopressor 50 mg PO BID 09/03/18 09/05/19 25mg tablet] Pantoprazole Sodium [Protonix 20mg 40 mg PO BID 09/03/18 09/05/19 Tab] Previous Rx's Medication Instructions Recorded Amoxicillin/Potassium Clav 1 tab PO Q12H 10 Days #20 tab 09/05/19 [Augmentin 875-125 Tablet] predniSONE [Deltasone 10mg tablet] 10 mg PO BID 4 Days #8 tab 09/05/19 Allergies Allergy/AdvReac Type Severity Reaction Status Date / Time peanut Allergy Severe Difficulty Verified 09/04/18 03:00 Breathing loratadine [From CLARITIN] Allergy Unknown Verified 09/03/18 21:26 corn Allergy Verified 09/04/18 03:00 tomato Allergy Verified 09/04/18 03:00 - Worker's Comp Is this a Worker's Comp case?: No [facility] History - Hepatitis A Screen Drug use history?: No High risk sexual behaviors?: No History of sexually transmitted infection?: No Currently employed?: No Childcare worker?: No Do you have indoor plumbing?: Yes Do you have electricity?: Yes Attestation statement:: This patient has been screened for Hepatitis A risk factors. I have reviewed the patient's past medical history: Yes Medical History: Reports:: Gastroesopha
[2019-09-05 17:10] VITALS: BP 143/91; PULSE 81; RESP 17; TEMP 36.6; O2SAT 98
== END 2019-09-05 17:14 | disposition home or self-care (01) ==
PROVIDERS: Emergency Provider Nurse Practitioner Family
DX: H66.003 Acute suppurative otitis media without spontaneous rupture of ear drum, bilateral (principal); J01.90 Acute sinusitis, unspecified; K21.9 Gastro-esophageal reflux disease without esophagitis; E04.1 Nontoxic single thyroid nodule; F17.210 Nicotine dependence, cigarettes, uncomplicated; Z90.09 Acquired absence of other part of head and neck
CPT/HCPCS: 99201

== ENCOUNTER 2019-10-29 13:25 | Emergency (ER) | payer MEDICAID, SELFPAY ==
[2019-10-29 13:33] VITALS: BP 217/103; PULSE 61; RESP 18; TEMP 36.6; O2SAT 96; BMI 26.6
--- NOTE | 2019-10-29 13:42 | XR_ITS ---
PROCEDURE: XR CHEST PORTABLE CLINICAL HISTORY: cough COMPARISON: No exams were available for comparison FINDINGS: The cardiomediastinal silhouette and pulmonary vascularity are within normal limits. The lungs are clear without infiltrates, suspicious nodules, or pleural effusions. No acute bony abnormalities. IMPRESSION: No acute findings. Dictated by: Yeyo Kline MD 10/29/2019 14:17 Yeyo Kline MD in [place] 10/29/2019 14:17
[2019-10-29 13:48] VITALS: BP 222/115; PULSE 64; O2SAT 97
--- NOTE | 2019-10-29 13:49 | HMH.EDGENADL ---
ED Disposition Clinical Impression: Hypertension Qualifiers: Hypertension type: essential hypertension Qualified Code(s): I10 - Essential (primary) hypertension Disposition: Home, Self-Care Condition on Discharge: Good Instructions: Recommendations to Help Prevent High Blood Pressure Referrals: PCP,No [Primary Care Provider] - - Critical Care Critical Care Time: No Attestation: On 10/29/19, the high probability of a clinically significant, sudden or life threatening deterioration of the following system(s) required my full and direct attention, intervention and personal management. The time I documented below is in addition to time spent performing reported procedures but includes the following listed in this critical care notation. Medical Decision Making - Medical Records Medical records reviewed: Yes: I reviewed the patient's medical records. - [place] Inquiry Pt receiving controlled substance: No Vital Signs: 10/29/19 13:33 10/29/19 13:48 10/29/19 13:50 Temperature 97.8 F Temperature Source Oral Pulse Rate [Radial] 61 64 64 Respiratory Rate 18 Blood Pressure [Right Arm] 217/103 H 222/115 H 193/107 H Blood Pressure Mean [Right Arm] 141 150 135 Blood Pressure Source [Right Arm] Automatic Cuff Automatic Cuff Automatic Cuff Blood Pressure Position [Right Arm] Sitting Sitting Sitting 02 Sat by Pulse Oximetry 96 97 97 Oxygen Delivery Method Room Air Room Air Room Air 10/29/19 14:12 10/29/19 14:27 Temperature Temperature Source Pulse Rate [Radial] 64 70 Respiratory Rate 16 Blood Pressure [Right Arm] 167/96 H 162/84 H Blood Pressure Mean [Right Arm] 119 110 Blood Pressure Source [Right Arm] Automatic Cuff Automatic Cuff Blood Pressure Position [Right Arm] Sitting Sitting 02 Sat by Pulse Oximetry 97 96 Oxygen Delivery Method Room Air Room Air - Lab Data Lab Results 10/29/19 13:34: WBC 8.9, RBC 4.69, Hgb 14.3, Hct 39.5, MCV 84.2, MCH 30.4, MCHC 36.1 H, RDW 13.3, Plt Count 235, MPV 8.0, Neut % (Auto) 64.7, Lymph % (Auto) 24.3, Tift % (Auto) 5.7, Eos % (Auto) 4.7, Baso % (Auto) 0.6, Neut # (Auto) 5.8, Lymph # (Auto) 2.2, Tift # (Auto) 0.5, Eos # (Auto) 0.4, Baso # (Auto) 0.1 10/29/19 13:34: Sodium 141, Potassium 4.0, Chloride 106, Carbon Dioxide 27, Anion Gap 12.0, BUN 10, Creatinine 0.50 L, Estimated Creat Clear 147, Estimated GFR 126, Est GFR ( Amer) 153, Glucose 126 H, Calcium 9.6, Troponin I < 0.01 Result diagrams: 10/29/19 13:34 10/29/19 13:34 Orders (Tests/Meds): ED MEDICATIONS Discontinued Medications Generic Name Dose Route Start Last Admin Trade Name Freq PRN Reason Stop Dose Admin Hydralazine HCl 10 mg 10/29/19 13:43 10/29/19 13:49 Apresoline 20mg/Ml 1ml Vial IV 10/29/19 13:44 10 mg ONCE ONE Administration ORDERS Category Date Time Status Troponin I Q3H Lab 10/29/19 16:45 Ordered Troponin I Q3H Lab 10/29/19 19:45 Ordered EKG Request [ECG Request by /Chito] Stat Y 10/29/19 13:42 Ordered - Radiology Data #1 Image(s): Chest Image Reviewed: Yes I reviewed the patient's radiology results Preliminary Findings: Normal/NAD, No Infiltrates Seen - ECG Data Tracing #1 Normal ventricular rate of 60 bpm, normal [place] interval, normal QTC. Sinus rhythm with left ventricular hypertrophy, nonspecific changes ECG initial impression date: 10/29/19 ECG initial impression time: 13:56 - Reevaluation(s) Time: 14:44 Reevaluation #1: On reevaluation, the patient is feeling much better. Blood pressure is improved. Laboratory studies were unremarkable. Patient is to continue her antihypertensive. She needs to follow-up with her PCP. Given strict return precautions. Verbalized understanding. Medical Decision Narrative: This is a 59-year-old female presented to the emergency department with elevated blood pressure. Patient has a longstanding history of hypertension. She has no focal neurologic deficits. Work-up will be initiated.
[2019-10-29 13:50] VITALS: BP 193/107; PULSE 64; O2SAT 97
[2019-10-29 13:53] LABS: Basophils # 0.1 K/mm3 (0-0.2); Basophils % 0.6 % (0.1-2.0); Eosinophils # 0.4 K/mm3 (0.0-0.4); Eosinophils % 4.7 % (0.1-12.0); Hematocrit 39.5 % (37.0-47.0); Hemoglobin 14.3 g/dL (12.2-16.2); Lymphocytes # 2.2 K/mm3 (0.7-4.5); Lymphocytes % 24.3 % (10-50); Mean Corpuscular HGB Conc 36.1 g/dL (31.8-35.4); Mean Corpuscular Hemoglobin 30.4 pg (27.0-31.2); Mean Corpuscular Volume 84.2 fl (81-99); Monocytes # 0.5 K/mm3 (0.1-1.0); Monocytes % 5.7 % (1.7-9.3); Neutrophils # 5.8 K/mm3 (1.8-7.8); Neutrophils % 64.7 % (37.0-80.0); Platelet Count 235 K/mm3 (142-424); Red Blood Count 4.69 M/mm3 (4.20-5.40); Red Cell Distribution Width 13.3 % (11.5-17.5); White Blood Count 8.9 K/mm3 (4.8-10.8)
--- NOTE | 2019-10-29 13:53 | ECG_ITS ---
APPROVED REPORT Exam: Resting ECG HR:60 bpm ECG Measurements Heart Rate 60 AXES OH 186 P 62 QRSd 58 QRS 1 QT 462 T 14 QTc 462 <Conclusion> Normal sinus rhythm Possible Left atrial enlargement Left ventricular hypertrophy Anteroseptal infarct, age undetermined Abnormal ECG Electronically signed by : Bernabe Swann, 10/29/2019 17:44:01
[2019-10-29 13:54] LABS: Chloride 106 mmol/L (98-107)
[2019-10-29 13:55] LABS: Sodium 141 mmol/L (136-145)
[2019-10-29 13:58] LABS: Blood Urea Nitrogen 10 mg/dl (7-17); Calcium 9.6 mg/dl (8.4-10.2); Carbon Dioxide 27 mmol/L (22.0-30.0); Creatinine Clearance Estimated 147 mL/min (50-200); Estimated Glomerular Filt Rate 126 ml/min (>60); GFR (African American) 153 ML/MIN (>60); Glucose 126 mg/dl (74-100)
[2019-10-29 14:11] LABS: Troponin I < 0.01 ng/ml (0.00-0.034)
[2019-10-29 14:12] VITALS: BP 167/96; PULSE 64; RESP 16; O2SAT 97
[2019-10-29 14:27] VITALS: BP 162/84; PULSE 70; O2SAT 96
[2019-10-29 14:51] VITALS: BP 168/98; PULSE 78; RESP 18; TEMP 36.7; O2SAT 99
== END 2019-10-29 14:52 | disposition home or self-care (01) ==
PROVIDERS: Emergency Provider Emergency Medicine
DX: R51 Headache (principal); I10 Essential (primary) hypertension; K21.9 Gastro-esophageal reflux disease without esophagitis; R00.2 Palpitations; E03.9 Hypothyroidism, unspecified; F17.210 Nicotine dependence, cigarettes, uncomplicated
CPT/HCPCS: 71045; 80048; 84484; 85025; 93005; 96374; 99284

== ENCOUNTER 2019-11-08 08:38 | Day surgery (SDC) | payer MEDICAID, SELFPAY ==
[2019-11-08] VITALS (12 sets, daily range): BP systolic 108–152; BP diastolic 62–93; PULSE 58–77; RESP 16–20; TEMP 36.6; O2SAT 93–98; BMI 27.2
[2019-11-08 09:17] LABS: Basophils # 0.1 K/mm3 (0-0.2); Eosinophils # 0.4 K/mm3 (0.0-0.4); Eosinophils % 4.8 % (0.1-12.0); Hematocrit 41.6 % (37.0-47.0); Hemoglobin 14.8 g/dL (12.2-16.2); Lymphocytes # 2.2 K/mm3 (0.7-4.5); Lymphocytes % 28.7 % (10-50); Mean Corpuscular HGB Conc 35.6 g/dL (31.8-35.4); Mean Corpuscular Hemoglobin 31.1 pg (27.0-31.2); Mean Corpuscular Volume 87.3 fl (81-99); Mean Platelet Volume 8.3 fl (7.4-10.4); Monocytes # 0.5 K/mm3 (0.1-1.0); Monocytes % 6.2 % (1.7-9.3); Neutrophils # 4.4 K/mm3 (1.8-7.8); Neutrophils % 59.2 % (37.0-80.0); Platelet Count 311 K/mm3 (142-424); Red Blood Count 4.77 M/mm3 (4.20-5.40); Red Cell Distribution Width 13.3 % (11.5-17.5); White Blood Count 7.5 K/mm3 (4.8-10.8)
[2019-11-08 09:22] LABS: Blood Urea Nitrogen 17 mg/dl (7-17); Carbon Dioxide 26 mmol/L (22.0-30.0); Chloride 105 mmol/L (98-107); Creatinine Clearance Estimated 126 mL/min (50-200); Estimated Glomerular Filt Rate 102 ml/min (>60); GFR (African American) 124 ML/MIN (>60); Glucose 160 mg/dl (74-100); Sodium 139 mmol/L (136-145)
[2019-11-08 09:47] LABS: Coronavirus 19 IgG Antibody Negative (Negative); Coronavirus 19 IgM Antibody Negative (Negative)
--- NOTE | 2019-11-08 10:00 | IR_ITS ---
APPROVED REPORT Patient Location: Outpatient PROCEDURES Left heart catheterization Left ventriculogram Selective coronary angiogram INDICATION Acute coronary syndrome, Abnormal EKG Informed consent was obtained prior to the procedure. COMPLICATIONS none Estimated Blood Loss: less than 10 mls TECHNIQUE One percent lidocaine used to anesthetize the right anterior aspect of the wrist. The right radial artery was accessed via the Seldinger technique. A 6 Portuguese sheath was placed in the right radial artery. 2.5 mg of verapamil, 800 mcg of nitroglycerin, 1mg Lidocaine and 5000 U Heparin were given through the arterial sheath. The trap catheter was also used to perform left heart catheterization, left ventriculogram and selective coronary angiogram. At the end of the procedure the sheath was removed good hemostasis was achieved using Traclet band, patient was transferred to the postop holding area in stable condition. ANGIOGRAPHIC RESULTS The left main artery Normal The left anterior descending artery Has mild proximal mid vessel luminal irregularities The circumflex artery Is a nondominant yet still large caliber vessel with a proximal 20% stenosis The right coronary artery Is a large dominant vessel with mild 10 to 20% diffuse luminal irregularities The OROZCO ventriculogram reveals Normal to hyperdynamic at 75% The left ventricular end-diastolic pressure 10 mmHg IMPRESSION Mild [id number] coronary disease Hyperdynamic ventricle consistent with diastolic dysfunction Normal left ventricular end-diastolic pressure PLAN 1. Medical management 2. Rest of risk factor modification Electronically signed by : Neftali Bowser, 11/08/2019 12:09:13
--- NOTE | 2019-11-08 10:01 | CA_ITS ---
APPROVED REPORT EXAM: Comprehensive 2D, Doppler, and color-flow Echocardiogram Hammerer Tab: Fatemeh Villela RVT Ht: 5 ft 7 in Wt: 174lbs BSA: 1.91 BP: 162/77 mmHg Indications: SOA,ABN EKG,CP,PALPS,EX-SMOKER,HTN,GERD 2D Dimensions LVOT 1.99 cm (M/F) 1.5-2.5 M-Mode Dimensions RVDd 2.39 cm (0.9-2.6) LVDd 4.67 cm (3.5-5.7) LVDs 2.81 cm (3.5-5.7) IVSd 1.06 cm (0.6-1.1) PWd 0.76 cm (0.6-1.1) EF (Teich) 70.40% FS 39.80% EDV (Teich) 100.80 mL ESV (Teich) 29.80 mL LV Diastology E/A Ratio 0.64 Mitral Valve MV A Velocity 85.00 (40-130 cm/s) Left Ventricle Left atrium is mildly enlarged, left ventricle is normal size, mild concentric left ventricular hypertrophy, visually estimated ejection fraction 55% with no regional wall motion abnormality, grade 1 diastolic dysfunction seen without tissue Doppler evidence of raise left atrial pressure. Right Ventricle Right atrium and right ventricular normal size and contractility. Aortic Valve Aortic valve is minimally thickened and fibrosed. There is no aortic stenosis or aortic insufficiency. Mitral Valve Mitral valve leaflets are minimally thickened, there is mild mitral regurgitation. Tricuspid Valve Tricuspid valve is grossly normal, there is mild tricuspid regurgitation. Tricuspid regurgitation jet velocity is inadequate for calculation of the right ventricular systolic pressure. Pulmonic Valve Pulmonic valve is poorly visualized. Great Vessels Aortic root is normal size. Pericardium No significant pericardial effusion noted. Conclusion 1. Mildly enlarged left atrium, normal left ventricular size, mild concentric left ventricular hypertrophy, visually estimated ejection fraction 55% with no regional wall motion abnormality, grade 1 diastolic dysfunction seen without tissue Doppler evidence of raise left atrial pressure. 2. Mild mitral and tricuspid regurgitation. 3. No significant pericardial effusion noted. Electronically signed by : Orlin Hobbs, 11/08/2019 13:29:58
== END 2019-11-08 15:08 | disposition home or self-care (01) ==
LOC: CATHLAB 08:40
PROVIDERS: Visit Provider Internal Medicine
DX: I25.110 Atherosclerotic heart disease of native coronary artery with unstable angina pectoris (principal); K21.9 Gastro-esophageal reflux disease without esophagitis; R06.00 Dyspnea, unspecified; Z82.49 Family history of ischemic heart disease and other diseases of the circulatory system; Z87.891 Personal history of nicotine dependence; Z79.52 Long term (current) use of systemic steroids; Z79.899 Other long term (current) drug therapy
CPT/HCPCS: 80048; 85025; 86328; 93306; 93458; 99152; C1725; C1760; C1769; J1644; Q9967

== ENCOUNTER → 2019-11-14 08:26 | Outpatient (CLI) | payer MEDICAID, SELFPAY ==
--- NOTE | 2019-11-14 08:31 | US_ITS ---
PROCEDURE: US BREAST LT COMPLETE CLINICAL INDICATION: LFT BREAST ABCESS COMPARISON: No exams were available for comparison FINDINGS: At 2 o'clock there is a hypoechoic nodule at 4 mm. There is some through transmission of sound. This is rounded in nature. At 9 o'clock near the nipple at the drainage area there is a 6 x 3 mm subcutaneous hypoechoic nodule with some overlying thickening of the subcutaneous tissues.. There may be a track leading from this area to near the skin surface. This is suspicious for small abscess. Additionally at 9 o'clock there is a cyst at 5 mm. There are some small nodes present in the axilla. IMPRESSION: Possible small abscess at 9 o'clock with suspected small drainage tract. Patient was not able to undergo mammography at the time of the ultrasound due to pain and tenderness. Suggest short-term sonographic follow-up. Small cyst at 9 o'clock. 4 mm hypoechoic nodule at 2 o'clock probably benign. Suggest mammography when patient can tolerate. Dictated by: Yeyo Kline MD 11/23/2019 13:21 Yeyo Kline MD in [place] 11/23/2019 13:21
== END ==
PROVIDERS: Visit Provider Surgery
DX: N61.1 Abscess of the breast and nipple (principal)
CPT/HCPCS: 76641

== ENCOUNTER → 2019-12-03 13:07 | Outpatient (CLI) | payer MEDICAID, SELFPAY ==
[2019-12-03 13:59] LABS: Chloride 105 mmol/L (98-107); Potassium 4.2 mmoL/L (3.5-5.1); Sodium 139 mmol/L (136-145)
[2019-12-03 14:02] LABS: Blood Urea Nitrogen 13 mg/dl (7-17); Estimated Glomerular Filt Rate 86 ml/min (>60); GFR (African American) 104 ML/MIN (>60)
[2019-12-03 14:03] LABS: Anion Gap 14.2 mEq/L (5-15); Calcium 9.9 mg/dl (8.4-10.2); Carbon Dioxide 24 mmol/L (22.0-30.0); Glucose 130 mg/dl (74-100)
[2019-12-03 14:33] LABS: Basophils % 0.6 % (0.1-2.0); Eosinophils # 0.2 K/mm3 (0.0-0.4); Eosinophils % 3.4 % (0.1-12.0); Hematocrit 43.3 % (37.0-47.0); Hemoglobin 14.6 g/dL (12.2-16.2); Lymphocytes # 2.4 K/mm3 (0.7-4.5); Lymphocytes % 33.7 % (10-50); Mean Corpuscular HGB Conc 33.7 g/dL (31.8-35.4); Mean Corpuscular Hemoglobin 29.1 pg (27.0-31.2); Mean Corpuscular Volume 86.5 fl (81-99); Mean Platelet Volume 7.7 fl (7.4-10.4); Monocytes # 0.3 K/mm3 (0.1-1.0); Monocytes % 4.7 % (1.7-9.3); Neutrophils # 4.1 K/mm3 (1.8-7.8); Neutrophils % 57.6 % (37.0-80.0); Platelet Count 293 K/mm3 (142-424); Red Cell Distribution Width 13.1 % (11.5-17.5); White Blood Count 7.1 K/mm3 (4.8-10.8)
[2019-12-03 14:40] LABS: Coronavirus 19 IgG Antibody Negative (Negative); Coronavirus 19 IgM Antibody Negative (Negative)
== END ==
PROVIDERS: Visit Provider Surgery
DX: Z01.818 Encounter for other preprocedural examination (principal); L02.91 Cutaneous abscess, unspecified
CPT/HCPCS: 36415; 80048; 85025; 86328

== ENCOUNTER 2019-12-05 12:09 | Day surgery (SDC) | payer MEDICAID, SELFPAY ==
[2019-12-03 14:48] VITALS: BMI 27.2
[2019-12-05] VITALS (10 sets, daily range): BP systolic 130–146; BP diastolic 73–91; PULSE 54–66; RESP 14–18; TEMP 36.2–36.8; O2SAT 93–100
--- NOTE | 2019-12-05 16:30 | HMH.OPNOTE ---
Date of procedure: 12/05/19 Pre-op Diagnosis:: Left breast lesion Post-op Diagnosis:: Same Procedure performed:: Excision of the left breast areolar lesion Surgeon:: Ady Luciano MD SENIOR IT SPECIALIST:: Bernabe Andres Anesthesia: LMA Estimated blood loss (mL): 3 Clinical Note:: Patient presents for excision of her left breast cyst . She is a 59-year-old female whom I had seen as an inpatient in August 2018 for left breast abscess. She had an area which appeared to be an abscessed sebaceous cyst on the medial left breast. I took her to the operating room and excise the area. This was sent for histopathologic analysis and returned as abscessed inclusion cyst. Patient residence is in [place] but she has relatives here in [place]. Saw her in the office on 10/29/2019. At that time the area was somewhat inflamed. She states that over the past year she has had 4 flareups of the area where surgery had been performed. This has resolved after she has spontaneous drainage. I placed her on antibiotics and had her undergo breast ultrasound. The inflammation has now resolved. Operative findings:: Possibly consistent with inflamed ectatic subareolar duct Operative note:: Patient was taken the operating room. She was given preoperative intravenous antibiotics. In the operating room she is placed in a supine position. Left breast was prepped and draped in the standard surgical fashion. Skin was marked with a skin marker for planned crescent shaped incision in a periareolar fashion at the site of the lesion. Dissection was carried down through full-thickness of skin. There is underlying thickened tissue possibly consistent with ectatic duct. This was excised down to the central duct using tenotomy scissor dissection. This was sent off as a specimen. There was good hemostasis. Local anesthetic was infiltrated. Subdermal tissues were closed with several interrupted 3-0 Vicryl sutures. Skin was closed with 5-0 nylon. Clean dry sterile dressing was applied. Condition: stable Disposition: PACU Specimens:: Left breast periareolar lesion Complications:: None immediately apparent
--- NOTE | 2019-12-05 16:34 | HMH.ANESCL ---
[facility] Anesthesia Checklist - Patient Identification Patient Identification: Arm Band, Verbal (Name & ) - Structural Data Admitted From: Home Planned Operative Procedure/s: excision breast lesion Consent for Planned Operative Procedure(s) Verified: Yes Verified Documents: History and Physical - NPO Status Verified Time NPO: 00:00 - Chart Verification Results Verified: CBC, BMP - Additional verifications Patient : No Anesthesia Reactions: No Hx Blood Transfusions: No Blood Transfusion Reaction: No Cephalosporin Allergy: No Previous Colonoscopy: No - Cardiovascular Assessment Heart Sounds: S1 & S2 Pulse Strength: Baseline Pulse Rhythm: Regular Peripheral Edema: No - Airway Assessment C-Spine Mobility Assessed: Yes TMJ Mobility Assessed: Yes Dentition: Edentulous - Neurological Assessment Level of Consciousness: Awake, Alert, Appropriate Hx Seizures: No Numbness or tingling in extremities: No - Anesthesia Plan Anesthesia Risk discussed: Yes Anesthesia Plan: Verified ASA Class: II Anesthesia Type: General [facility] History I have reviewed the patient's past medical history: Yes Medical History: Reports:: Asthma, Gastroesophageal Reflux Disease(GERD), Hypertension, Palpitations Denies:: Cancer, Chronic Obstructive Pulmonary Disease (COPD), Diabetes Mellitus Type 1, Diabetes Mellitus Type 2, Internal Pacemaker, MRSA, Seizures *Have you ever received a pneumonia vaccine?: No *Have you received a flu vaccine this season?: No Other Medical History: Reports: Thyroid Disease. Denies: Blood Transfusion Reaction Anesthesia experience/problems:: none Laterality Cases: Bilateral: Tonsillectomy Other Surgeries: Yes: Appendectomy, Cardiac Catheterization, Dilation and Curettage, Hysterectomy-Partial. No: Pacemaker Amputation: No Fractures: No - *Social History Last grade of school completed: High school graduate Smoking Status: Former smoker Tobacco Type: cigarettes # Packs/Day (cigarettes): 1 Alcohol Intake: never Alcohol Intake Frequency:: holidays/special occasions only Substance Use Type: other *Occupational Status:: unemployed, disabled Housing: house Household Members: none *Travel in the last 8 weeks: None Family Hx:: Anemia, Asthma, Cancer, Diabetes, Heart Attack, Hypertension, Kidney Disease, Stroke, Thyroid Disorder
--- NOTE | 2019-12-05 16:35 | P.PN_ITS ---
[facility] [place] Anesthesia Record Part I Intake, IV Amount: 500 Estimated blood loss (mL): 10 Urine output (mL): 0 Blood Products used (#): none Blood Pressure: 136/75 SaO2: 93 Pulse Rate: 57 Respiratory Rate: 18 Temperature: 98.2 F Patient is:: Drowsy, Stable Stable to PACU at:: 16:34
--- NOTE | 2019-12-06 06:35 | HMH.ANESII ---
[facility] Anesthesia Record Part II Discharge Time: 17:04 Destination: Surgical Day Care (OP Surgery) PACU nurse assessment reviewed?: Yes Patient Condition:: Good Anesthesia Complications:: None Swallowing reflex intact?: Yes Cyanosis?: No Blood Pressure: 139/76 Pulse Rate: 57 Temperature: 97.7 F Mental Status: Alert & Oriented Pain level:: 0 Nausea and/or vomitting:: None Intake, IV Amount: 0
[2019-12-06 06:36] VITALS: BP 139/76; PULSE 57; TEMP 36.5
== END 2019-12-05 17:45 | disposition home or self-care (01) ==
LOC: OR 12:11
PROVIDERS: Visit Provider Surgery
PROC: (CPT 19120; principal; 2019-12-05 13:45)
DX: N60.02 Solitary cyst of left breast (principal); Z88.8 Allergy status to other drugs, medicaments and biological substances; J45.909 Unspecified asthma, uncomplicated; K21.9 Gastro-esophageal reflux disease without esophagitis; I10 Essential (primary) hypertension; R00.2 Palpitations; E07.9 Disorder of thyroid, unspecified; Z90.89 Acquired absence of other organs; Z79.82 Long term (current) use of aspirin; Z79.899 Other long term (current) drug therapy
CPT/HCPCS: 19120; 96374; J2405

== ENCOUNTER 2021-08-13 18:55 | Emergency (ER) | payer MEDICAID, SELFPAY ==
[2021-08-13 19:25] VITALS: BP 147/86; PULSE 79; RESP 18; TEMP 36.7; O2SAT 98; BMI 29.5
--- NOTE | 2021-08-13 19:53 | HMH.EDUTC ---
[facility] Disposition Clinical Impression: Sinusitis Qualifiers: Sinusitis location: unspecified location Chronicity: unspecified Qualified Code(s): J32.9 - Chronic sinusitis, unspecified Disposition: Home, Self-Care Condition on Discharge: Good Instructions: Sore Throat, DI for Sinusitis Additional Instructions: *Monitor Temp, Over the counter Motrin or Tylenol as directed/as needed Tylenol every 4 hours and Motrin every 6 hours (as long as your family doctor has told you that you can take it) for fever or pain. and straight to ER if unable to lower temp less than 101.0 after medication given *Warm salt water gargles may help to soothe the throat *Throat Lozenges *Warm fluids like tea with honey may help to soothe the throat *Sleep elevated *Humidifier/Vaporizer Your throat swab was sent for culture. Those results are typically sent to your primary care. Be sure to follow up in 2-3 days with your family doctor/primary care physician if no improvement so they can review those result and treat if necessary. If you don?t have a primary care doctor, I recommend you get one but in the mean time, you will have to return to a walk in clinic Follow up IMMEDIATELY for new or worsening symptoms or no Noticeable improvement over the next 48-72 hours. 911 for difficulty breathing or swallowing You were tested for today for COVID19 your test result should be back in the next 24-48 hours, you may Check your results on the [facility] My health portal Make sure to take your Vitamins Vit. C Vit D and Zinc if you can take them Prescriptions: Cefdinir [Omnicef 300mg Capsule] 300 mg PO BID #20 cap Transmission Status: Pending to [facility] #[id number] Referrals: Provider,Referral, [Primary Care Provider] - As needed Time of Disposition: 20:17 Medical Decision Making - [place] Inquiry Pt receiving controlled substance: No [place] was queried for this patient: No Vital Signs: 08/13/21 19:25 Temperature 98.0 F Temperature Source Oral Pulse Rate [Left Brachial] 79 Respiratory Rate 18 Blood Pressure [Left Arm] 147/86 H Blood Pressure Mean [Left Arm] 106 Blood Pressure Source [Left Arm] Automatic Cuff Blood Pressure Position [Left Arm] Sitting 02 Sat by Pulse Oximetry 98 Oxygen Delivery Method Room Air - Lab Data Lab results reviewed: Yes: I reviewed the patient's lab results. Lab Results 08/13/21 19:24: Group A Strep Rapid Negative Orders (Tests/Meds): ORDERS Category Date Time Status Strep Screen Confirmation Stat Micro 08/13/21 19:24 Received [facility] HPI - General Stated complaint: sore throat drainage Time Seen by Provider: 08/13/21 19:53 Mode of Arrival: Ambulatory Source of Information: Patient Limitations: No Limitations Description of Symptoms (Recalled from Triage Doc. by RN): PATIENT C/O SORE THROAT AND SINUS DRAINAGE THAT STARTED TODAY HEENT Symptoms (Recalled from RN notes): Yes Resp Symptoms (Recalled from RN notes): No Skin Symptoms (Recalled from RN notes): No MS Symptoms (Recalled from RN notes): No Functional Status (Recalled from RN notes): WNL - History of Present Illness Provider Complaint: Patient states that she has been having sinus congestion on and off for several days but today she started having sore throat and sinus drainage/pressure States that she feels like her throat is raw and cracked and hurts when she swallows - Related Data Home Medications Medication Instructions Recorded Confirmed Cetirizine HCl 10 mg PO HS 09/03/18 10/13/20 beclomethasone dipropionate 80 1 inh INHALATION BID g 11/02/19 10/13/20 mcg/actuation HFA breath activated aerosol fluticasone 250 mcg-salmeterol 50 1 inh INHALATION BID 11/02/19 10/13/20 mcg/dose blistr powdr for inhalation meloxicam 15 mg tablet 15 mg PO DAILY 11/02/19 10/13/20 pantoprazole 20 mg tablet,delayed 40 mg PO DAILY tab 11/02/19 10/13/20 release Amlodipine Besylate 2.5 mg PO DAILY 11/08/19 10/13/20 Famotidin
[2021-08-13 20:02] LABS: Strep Scrn Group A (Rapid) Negative (Negative)
[2021-08-13 20:21] VITALS: BP 147/86; PULSE 79; RESP 18; TEMP 36.7; O2SAT 98
== END 2021-08-13 20:28 | disposition home or self-care (01) ==
PROVIDERS: Emergency Provider Nurse Practitioner
DX: J32.9 Chronic sinusitis, unspecified (principal)
CPT/HCPCS: 87430; 99212; G0463

== ENCOUNTER 2021-08-16 12:43 | Emergency (ER) | payer MEDICAID, SELFPAY ==
[2021-08-16 13:23] VITALS: BP 144/68; PULSE 72; RESP 17; TEMP 36.7; O2SAT 96; BMI 29.9
--- NOTE | 2021-08-16 13:33 | HMH.EDUTC ---
[facility] Disposition Clinical Impression: Allergic reaction Qualifiers: Encounter type: initial encounter Qualified Code(s): T78.40XA - Allergy, unspecified, initial encounter Sinusitis Qualifiers: Sinusitis location: unspecified location Chronicity: acute Recurrence: non-recurrent Qualified Code(s): J01.90 - Acute sinusitis, unspecified Disposition: Home, Self-Care Condition on Discharge: Good Instructions: DI for Sinusitis, DI for General Allergic Reactions Additional Instructions: Drink plenty of fluids. Take the medications as directed. Follow up with your regular doctor. GO TO THE ER FOR ANY WORSENING SYMPTOMS Don't start the oral steroids until tomorrow, since you had the shot here today. Stop the cefdinir that you on. This does not look like a drug reaction, but there's no way to be completely sure. Start the azithromycin Prescriptions: methylPREDNISolone [Medrol] 4 mg PO DIRECTED 6 Days #21 packet Transmission Status: Received by [facility] #[id number] Triamcinolone Acetonide 1 applicatio TP TIDP PRN 7 Days #1 gm PRN Reason: Itching Transmission Status: Received by [facility] #[id number] Azithromycin [Z-Jordon 250mg Tab*] 250 mg PO UD DOSE PK #6 tab Transmission Status: Received by [facility] #[id number] Referrals: Rafaela Howell APRN [Primary Care Provider] - Time of Disposition: 14:07 Medical Decision Making - Medical Records Medical records reviewed: No: I reviewed the patient's medical records. - [place] Inquiry Pt receiving controlled substance: No Vital Signs: 08/16/21 13:23 08/16/21 14:15 Temperature 98.1 F 98.1 F Temperature Source Oral Pulse Rate 72 Pulse Rate [Left] 72 Respiratory Rate 17 17 Blood Pressure 144/68 H Blood Pressure [Right Arm] 144/68 H Blood Pressure Mean [Right Arm] 93 02 Sat by Pulse Oximetry 96 Orders (Tests/Meds): ED MEDICATIONS Discontinued Medications Generic Name Dose Route Start Last Admin Trade Name Freq PRN Reason Stop Dose Admin Methylprednisolone Sodium Succinate 125 mg 08/16/21 13:44 08/16/21 13:50 Methylprednisolone Sod Succ 125mg Vial IM 08/16/21 13:45 125 mg ONCE ONE Administration [facility] HPI - General Stated complaint: rash Time Seen by Provider: 08/16/21 13:33 Description of Symptoms (Recalled from Triage Doc. by RN): patient comes in today with a rash on legs, chest, abdomen. patient states that she began taking a new abx cefdinir, she has never taken it before. patient took two doses tuesday. tuesday patient was outside in the yard and was around possible bugs. patient unsure if she is having a reaction to the abx, or a bug bite HEENT Symptoms (Recalled from RN notes): No Resp Symptoms (Recalled from RN notes): No Skin Symptoms (Recalled from RN notes): Yes MS Symptoms (Recalled from RN notes): No Functional Status (Recalled from RN notes): wnl - History of Present Illness Provider Complaint: She states that for the past 2 days she has had a rash on both her thighs and abdomen. The rash itches. She denies any known exposure to anything that could have irritated her. She has been on cefdinir for 8 days due to a sinus infection. She has took that antibiotic in the past and never been allergic to it. - Related Data Home Medications Medication Instructions Recorded Confirmed Cetirizine HCl 10 mg PO HS 09/03/18 10/13/20 beclomethasone dipropionate 80 1 inh INHALATION BID g 11/02/19 10/13/20 mcg/actuation HFA breath activated aerosol fluticasone 250 mcg-salmeterol 50 1 inh INHALATION BID 11/02/19 10/13/20 mcg/dose blistr powdr for inhalation meloxicam 15 mg tablet 15 mg PO DAILY 11/02/19 10/13/20 pantoprazole 20 mg tablet,delayed 40 mg PO DAILY tab 11/02/19 10/13/20 release Amlodipine Besylate 2.5 mg PO DAILY 11/08/19 10/13/20 Famotidine [Acid [employer]seed [employer] Refiner] 20 mg PO DAILY 11/08/19 10/13/20 Losartan Potassium [Cozaar 50mg 50 mg PO DAILY 11/08/19 10/13/20
[2021-08-16 14:15] VITALS: BP 144/68; PULSE 72; RESP 17; TEMP 36.7
== END 2021-08-16 14:19 | disposition home or self-care (01) ==
PROVIDERS: Emergency Provider Nurse Practitioner Family; PCP Nurse Practitioner
DX: T78.40XA Allergy, unspecified, initial encounter (principal); J01.90 Acute sinusitis, unspecified; Z88.8 Allergy status to other drugs, medicaments and biological substances
CPT/HCPCS: 96372; 99212; G0463

== ENCOUNTER 2021-10-15 18:04 | Emergency (ER) | payer MEDICAID, SELFPAY ==
[2021-10-15 18:29] VITALS: BP 137/78; PULSE 80; RESP 16; TEMP 36.7; O2SAT 97; BMI 28.9
--- NOTE | 2021-10-15 18:49 | EXP.UTC ---
Discharge Plan Disposition Patient Disposition: Home, Self-Care Condition: Good Prescriptions Prescriptions: New benzonatate [benzonatate] 100 mg capsule 100 mg PO TIDP PRN (Reason: Cough) Qty: 30 0RF cephalexin [cephalexin] 500 mg capsule 500 mg PO Q6H 10 Days Qty: 40 0RF No Action albuterol sulfate 90 mcg/actuation HFA aerosol inhaler 90 mcg INHALATION DAILY meloxicam [Mobic] 15 mg tablet 15 mg PO DAILY fluticasone propion-salmeterol [Advair Diskus] 250-50 mcg/dose blister with device 1 inh INHALATION BID beclomethasone dipropionate 80 mcg/actuation HFA aerosol breath activated 1 inh INHALATION BID cephalexin [Keflex] 500 mg capsule 500 mg PO TID hydrochlorothiazide 12.5 mg tablet 12.5 mg PO DAILY Qty: 30 5RF aspirin 81 mg tablet,delayed release (DR/EC) 81 mg PO DAILY Qty: 30 5RF losartan 50 MG tablet 50 mg PO DAILY amlodipine 2.5 MG tablet 2.5 mg PO DAILY famotidine 20 MG tablet 20 mg PO DAILY spironolactone 25 MG tablet 25 mg PO DAILY azithromycin 250 MG tablet 250 mg PO UD DOSE PK Qty: 6 0RF Rx Instructions: Take two (2) tablets today, then one (1) tablet days #2 thru #5 triamcinolone acetonide 15 GM cream 1 applicatio TP TIDP PRN (Reason: Itching) 7 Days Qty: 1 0RF Rx Instructions: 0.025% methylprednisolone 4 MG tablets,dose pack 4 mg PO DIRECTED 6 Days Qty: 21 0RF cetirizine 10 MG tablet 10 mg PO HS Label Comments: TAKE ONE TABLET EVERY DAY pantoprazole 20 mg tablet,delayed release (DR/EC) 40 mg PO DAILY metoprolol tartrate 25 mg tablet 25 mg PO BID Label Comments: TAKE ONE TABLET BY MOUTH TWO TIMES A DAY cefdinir 300 MG capsule 300 mg PO BID Qty: 20 0RF Referrals Follow up/Referrals: Rafaela Howell APRN [Primary Care Provider] - See instructions Activity Restrictions/Add. Instructions Additional Instructions/Restrictions: Drink plenty of fluids. Take tylenol for pain or fever. Take the medications as directed. Follow up with your regular doctor. GO TO THE ER FOR ANY WORSENING SYMPTOMS Clinical Impressions Clinical Impression: Sinusitis Instructions Patient Instructions: Sinusitis, DI for Sinusitis Discharge ED Provider: Seun Greenwood [facility] HPI General Stated complaint: head congestion Mode of Arrival: Ambulatory Source of Information: Patient Limitations: No Limitations Time Seen by Provider: 10/15/21 19:08 Description of Symptoms (Recalled from Triage Doc. by RN): pt comes in with complaints of sinus and chest congestion, bilateral ear fullness. symptoms began 4 days ago HEENT Symptoms (Recalled from RN notes): Yes Resp Symptoms (Recalled from RN notes): Yes Skin Symptoms (Recalled from RN notes): No MS Symptoms (Recalled from RN notes): No Functional Status (Recalled from RN notes): n/a History of Present Illness Provider Complaint: She has had a productive cough and sinus congestion for the past 5 days. She refuses a covid test. Related Data Home Medications Medication Instructions Recorded Confirmed cetirizine 10 mg tablet 10 mg PO HS Allergy symptoms 09/03/18 10/13/20 beclomethasone dipropionate 80 1 inh inhalation BID Breathing 11/02/19 10/13/20 mcg/actuation HFA breath activated problems aerosol fluticasone 250 mcg-salmeterol 50 1 inh inhalation BID allergies 11/02/19 10/13/20 mcg/dose blistr powdr for inhalation (Advair Diskus) meloxicam 15 mg tablet (Mobic) 15 mg PO DAILY Pain 11/02/19 10/13/20 pantoprazole 20 mg tablet,delayed 40 mg PO DAILY GERD 11/02/19 10/13/20 release amlodipine 2.5 mg tablet 2.5 mg PO DAILY High blood pressure 11/08/19 10/13/20 famotidine 20 mg tablet 20 mg PO DAILY stomach 11/08/19 10/13/20 losartan 50 mg tablet 50 mg PO DAILY htn 11/08/19 10/13/20 albuterol sulfate 90 mcg/actuation 90 mcg inhalation DAILY Breathing 11/23/19 10/13/20 aerosol inhaler problems princess
[2021-10-15 19:35] VITALS: BP 137/78; PULSE 80; RESP 16; TEMP 36.7
== END 2021-10-15 19:35 | disposition home or self-care (01) ==
PROVIDERS: Emergency Provider Nurse Practitioner Family; PCP Nurse Practitioner
DX: J32.9 Chronic sinusitis, unspecified (principal)
CPT/HCPCS: 96372; 99212; G0463; J0696

== ENCOUNTER 2021-10-30 18:10 | Emergency (ER) | payer MEDICAID, SELFPAY ==
--- NOTE | 2021-10-30 18:54 | XR_ITS ---
PROCEDURE INFORMATION: Exam: XR Chest Exam date and time: 10/30/2021 6:50 PM Age: 61 years old Clinical indication: Cough and other: Congestion TECHNIQUE: Imaging protocol: Radiologic exam of the chest. Views: 2 views. COMPARISON: CR XR CHEST PORTABLE 10/29/2019 1:57 PM FINDINGS: Lungs: No lobar consolidation, pleural effusion or pulmonary edema. Pleural spaces: See Lungs finding. Heart/Mediastinum: Unremarkable. No cardiomegaly. Bones/joints: Unremarkable. IMPRESSION: No lobar consolidation, pleural effusion or pulmonary edema. Plain films are relatively insensitive for detecting any possible ground glass opacities.
[2021-10-30 19:01] VITALS: BP 141/79; PULSE 73; RESP 16; TEMP 36.8; O2SAT 94; BMI 28.9
[2021-10-30 19:04] LABS: Adenovirus,PCR Not Detected (NotDetected); Bordetella Pertussis Not Detected (NotDetected); Chlamydophila Pneumoniae, PCR Not Detected (NotDetected); Coronavirus 19, PCR Not Detected (NotDetected); Coronavirus 229E Not Detected (NotDetected); Coronavirus NL63 Not Detected (NotDetected); Coronavirus OC43 Not Detected (NotDetected); Coronovirus HKU1,PCR Not Detected (NotDetected); Human Metapneumovirus Not Detected (NotDetected); Influenza A, PCR Not Detected (NotDetected); Influenza AH1, 2009 Not Detected (NotDetected); Influenza AH1, PCR Not Detected (NotDetected); Influenza AH3,PCR Not Detected (NotDetected); Influenza B, PCR Not Detected (NotDetected); Mycoplasma Pneumoniae, PCR Not Detected (NotDetected); Parainfluenza 1, PCR Not Detected (NotDetected); Parainfluenza 2, PCR Not Detected (NotDetected); Parainfluenza 3, PCR Not Detected (NotDetected); Parainfluenza 4, PCR Not Detected (NotDetected); Respiratory Syncytial Virus Not Detected (NotDetected); Rhinovirus/Enterovirus Not Detected (NotDetected)
--- NOTE | 2021-10-30 19:11 | EXP.UTC ---
Discharge Plan Disposition Patient Disposition: Home, Self-Care Condition: Good Prescriptions Prescriptions: New guaifenesin [Mucinex] 600 mg tablet extended release 12hr 600 mg PO Q12H PRN (Reason: congestion) Qty: 20 0RF azithromycin [Zithromax Z-Jordon] 250 mg tablet See Rx Instructions PO .COMPLEX 5 Days Qty: 6 0RF Rx Instructions: For 250 mg dose pack: take 500 mg today (day 1), then 250 mg for 4 days (days 2-5) No Action albuterol sulfate 90 mcg/actuation HFA aerosol inhaler 90 mcg INHALATION DAILY meloxicam [Mobic] 15 mg tablet 15 mg PO DAILY fluticasone propion-salmeterol [Advair Diskus] 250-50 mcg/dose blister with device 1 inh INHALATION BID beclomethasone dipropionate 80 mcg/actuation HFA aerosol breath activated 1 inh INHALATION BID cephalexin [Keflex] 500 mg capsule 500 mg PO TID hydrochlorothiazide 12.5 mg tablet 12.5 mg PO DAILY Qty: 30 5RF aspirin 81 mg tablet,delayed release (DR/EC) 81 mg PO DAILY Qty: 30 5RF losartan 50 MG tablet 50 mg PO DAILY amlodipine 2.5 MG tablet 2.5 mg PO DAILY famotidine 20 MG tablet 20 mg PO DAILY spironolactone 25 MG tablet 25 mg PO DAILY azithromycin 250 MG tablet 250 mg PO UD DOSE PK Qty: 6 0RF Rx Instructions: Take two (2) tablets today, then one (1) tablet days #2 thru #5 triamcinolone acetonide 15 GM cream 1 applicatio TP TIDP PRN (Reason: Itching) 7 Days Qty: 1 0RF Rx Instructions: 0.025% methylprednisolone 4 MG tablets,dose pack 4 mg PO DIRECTED 6 Days Qty: 21 0RF benzonatate [benzonatate] 100 mg capsule 100 mg PO TIDP PRN (Reason: Cough) Qty: 30 0RF cephalexin [cephalexin] 500 mg capsule 500 mg PO Q6H 10 Days Qty: 40 0RF cetirizine 10 MG tablet 10 mg PO HS Label Comments: TAKE ONE TABLET EVERY DAY pantoprazole 20 mg tablet,delayed release (DR/EC) 40 mg PO DAILY metoprolol tartrate 25 mg tablet 25 mg PO BID Label Comments: TAKE ONE TABLET BY MOUTH TWO TIMES A DAY cefdinir 300 MG capsule 300 mg PO BID Qty: 20 0RF Referrals Follow up/Referrals: Provider,Referral, MD [Primary Care Provider] - See instructions Activity Restrictions/Add. Instructions Additional Instructions/Restrictions: *Monitor Temp, Over the counter Motrin or Tylenol as directed/as needed Tylenol every 4 hours and Motrin every 6 hours (as long as your family doctor has told you that you can take it) for fever or pain. and straight to ER if unable to lower temp less than 101.0 after medication given *Warm salt water gargles may help to soothe the throat *Throat Lozenges? *Warm fluids like tea with honey may help to soothe the throat? *Sleep elevated *Humidifier/Vaporizer Follow up IMMEDIATELY for new or worsening symptoms or no Noticeable improvement over the next 48-72 hours. 911 for difficulty breathing or swallowing You were tested for today for Upper Respiratory with COVID19 your test result should be back in the next 24-48 hours, you may check your results on the [facility] My Health Portal Make sure to take your Vitamins Vit. C Vit D and Zinc if you can take them Clinical Impressions Clinical Impression: Bronchitis Sinusitis Qualifiers: Sinusitis location: unspecified location Chronicity: unspecified Qualified Code(s): J32.9 - Chronic sinusitis, unspecified Instructions Patient Instructions: Acute Bronchitis, DI for Sinusitis Discharge ED Provider: Talita Chandra [facility] [place] HPI General Stated complaint: cough,drainage,lung congestion Mode of Arrival: Ambulatory Source of Information: Patient Limitations: No Limitations Time Seen by Provider: 10/30/21 19:13 Description of Symptoms (Recalled from Triage Doc. by RN): C/O cough and chest congestion x2 weeks HEENT Symptoms (Recalled from RN notes): No Resp Symptoms (Recalled from RN notes): Yes (cough and congestion) Skin Symptoms (Recalled from
[2021-10-30 19:50] VITALS: BP 131/79; PULSE 78; RESP 16; TEMP 36.7; O2SAT 98
== END 2021-10-30 19:50 | disposition home or self-care (01) ==
PROVIDERS: Emergency Provider Nurse Practitioner
DX: Z87.891 Personal history of nicotine dependence; Z20.822 Contact with and (suspected) exposure to COVID-19; J20.9 Acute bronchitis, unspecified
CPT/HCPCS: 71046; 87581; 87632; 87798; 99212; C9803; G0463; U0003; U0005

== ENCOUNTER 2021-12-03 08:11 | Emergency (ER) | payer OTHER, SELFPAY ==
[2021-12-03 08:24] VITALS: BP 170/85; PULSE 63; RESP 18; TEMP 36.5; O2SAT 96
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
[2021-12-03 09:00] VITALS: BP 148/79; PULSE 63; RESP 17; O2SAT 97
--- NOTE | 2021-12-03 09:18 | PC.NURSE ---
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
[2021-12-03 09:50] VITALS: BP 139/77; PULSE 65; RESP 18; TEMP 36.4; O2SAT 97
== END 2021-12-03 09:51 | disposition home or self-care (01) ==
PROVIDERS: Emergency Provider Emergency Medicine
DX: S20.211A Contusion of right front wall of thorax, initial encounter (principal); S80.12XA Contusion of left lower leg, initial encounter; S39.012A Strain of muscle, fascia and tendon of lower back, initial encounter; V89.2XXA Person injured in unspecified motor-vehicle accident, traffic, initial encounter; I25.10 Atherosclerotic heart disease of native coronary artery without angina pectoris; K21.9 Gastro-esophageal reflux disease without esophagitis; I10 Essential (primary) hypertension
CPT/HCPCS: 71101; 72100; 73590; 99284

== ENCOUNTER 2022-05-26 08:13 | Emergency (ER) | payer MEDICAID, SELFPAY ==
[2022-05-26 08:20] VITALS: BP 157/78; PULSE 66; RESP 18; TEMP 36.6; O2SAT 96; BMI 28.0
--- NOTE | 2022-05-26 08:34 | EXP.UTC ---
Discharge Plan Disposition Patient Disposition: Home, Self-Care Condition: Good Prescriptions Prescriptions: New azithromycin [Zithromax] 250 mg tablet 250 mg PO UD DOSE PK Qty: 6 0RF Rx Instructions: Take two (2) tablets today, then one (1) tablet days #2 thru #5 benzonatate [benzonatate] 100 mg capsule 100 mg PO TIDP PRN (Reason: Cough) Qty: 30 0RF methylprednisolone 4 mg Tablets,Dose Pack 4 mg PO DIRECTED Qty: 21 0RF No Action albuterol sulfate 90 mcg/actuation HFA aerosol inhaler 90 mcg INHALATION DAILY meloxicam [Mobic] 15 mg tablet 15 mg PO DAILY fluticasone propion-salmeterol [Advair Diskus] 250-50 mcg/dose blister with device 1 inh INHALATION BID beclomethasone dipropionate 80 mcg/actuation HFA aerosol breath activated 1 inh INHALATION BID cephalexin [Keflex] 500 mg capsule 500 mg PO TID hydrochlorothiazide 12.5 mg tablet 12.5 mg PO DAILY Qty: 30 5RF aspirin 81 mg tablet,delayed release (DR/EC) 81 mg PO DAILY Qty: 30 5RF losartan 50 MG tablet 50 mg PO DAILY amlodipine 2.5 MG tablet 2.5 mg PO DAILY famotidine 20 MG tablet 20 mg PO DAILY spironolactone 25 MG tablet 25 mg PO DAILY azithromycin 250 MG tablet 250 mg PO UD DOSE PK Qty: 6 0RF Rx Instructions: Take two (2) tablets today, then one (1) tablet days #2 thru #5 triamcinolone acetonide 15 GM cream 1 applicatio TP TIDP PRN (Reason: Itching) 7 Days Qty: 1 0RF Rx Instructions: 0.025% methylprednisolone 4 MG tablets,dose pack 4 mg PO DIRECTED 6 Days Qty: 21 0RF benzonatate [benzonatate] 100 mg capsule 100 mg PO TIDP PRN (Reason: Cough) Qty: 30 0RF cephalexin [cephalexin] 500 mg capsule 500 mg PO Q6H 10 Days Qty: 40 0RF cetirizine 10 MG tablet 10 mg PO HS Label Comments: TAKE ONE TABLET EVERY DAY pantoprazole 20 mg tablet,delayed release (DR/EC) 40 mg PO DAILY metoprolol tartrate 25 mg tablet 25 mg PO BID Label Comments: TAKE ONE TABLET BY MOUTH TWO TIMES A DAY cefdinir 300 MG capsule 300 mg PO BID Qty: 20 0RF guaifenesin [Mucinex] 600 mg tablet extended release 12hr 600 mg PO Q12H PRN (Reason: congestion) Qty: 20 0RF azithromycin [Zithromax Z-Jordon] 250 mg tablet See Rx Instructions PO .COMPLEX 5 Days Qty: 6 0RF Rx Instructions: For 250 mg dose pack: take 500 mg today (day 1), then 250 mg for 4 days (days 2-5) Referrals Follow up/Referrals: Provider,Referral, MD [Primary Care Provider] - See instructions Activity Restrictions/Add. Instructions Additional Instructions/Restrictions: Drink plenty of fluids. Take tylenol or ibuprofen for pain or fever. Take the medications as directed. Follow up with your regular doctor. GO TO THE ER FOR ANY WORSENING SYMPTOMS Clinical Impressions Clinical Impression: Sinusitis Stand Alone Forms Stand Alone Forms: Work/School Release Instructions Patient Instructions: Sinusitis, DI for Sinusitis Discharge ED Provider: Seun Greenwood [facility] General Stated complaint: Congestion, headache Mode of Arrival: Ambulatory Source of Information: Patient Limitations: No Limitations Time Seen by Provider: 05/26/22 08:25 Description of Symptoms (Recalled from Triage Doc. by RN): PATIENT C/O HEAD AND CHEST CONGESTION SINCE YESTERDAY HEENT Symptoms (Recalled from RN notes): Yes Resp Symptoms (Recalled from RN notes): Yes Skin Symptoms (Recalled from RN notes): No MS Symptoms (Recalled from RN notes): No Functional Status (Recalled from RN notes): WNL History of Present Illness Provider Complaint: She c/o sinus congestion, chills, and a very sore throat since yesterday. Related Data Home Medications Medication Instructions Recorded Confirmed cetirizine 10 mg tablet 10 mg PO HS Allergy symptoms 09/03/18 10/13/20 beclomethasone dipropionate 80 1 inh inhalation BID Breathing 11/02/19 10/13/20 mcg/actuat
[2022-05-26 08:41] VITALS: BP 157/78; PULSE 66; RESP 18; TEMP 36.6; O2SAT 96
== END 2022-05-26 08:47 | disposition home or self-care (01) ==
PROVIDERS: Emergency Provider Nurse Practitioner Family
DX: J01.90 Acute sinusitis, unspecified (principal); J03.90 Acute tonsillitis, unspecified; I10 Essential (primary) hypertension; K21.9 Gastro-esophageal reflux disease without esophagitis
CPT/HCPCS: 99212; 99214; G0463

== ENCOUNTER 2022-06-05 12:17 | Emergency (ER) | payer MEDICAID, SELFPAY ==
[2022-06-05 12:30] VITALS: BP 147/80; PULSE 66; RESP 20; TEMP 36.8; O2SAT 96; BMI 28.0
--- NOTE | 2022-06-05 12:33 | XR_ITS ---
PROCEDURE INFORMATION: Exam: XR Chest Exam date and time: 06/05/2022 12:31 PM Age: 61 years old Clinical indication: Cough TECHNIQUE: Imaging protocol: Radiologic exam of the chest. Views: 2 views. COMPARISON: CR XR RIBS RT MIN 3V W CXR1V 12/03/2021 9:09 AM FINDINGS: Lungs: Unremarkable. No consolidation. Pleural spaces: Unremarkable. No pleural effusion. No pneumothorax. Heart/Mediastinum: Unremarkable. No cardiomegaly. Bones/joints: Unremarkable. IMPRESSION: No acute findings.
--- NOTE | 2022-06-05 12:40 | EXP.UTC ---
Discharge Plan Disposition Patient Disposition: Home, Self-Care Prescriptions Prescriptions: New prednisone 10 mg tablet 10 mg PO DIRECTED 9 Days Qty: 21 0RF Rx Instructions: Take 4 tablets daily for 3 days, then take 2 tablets daily for 3 days, then take 1 tablet daily for 3 days, then stop. amoxicillin-pot clavulanate 875-125 mg Tablet 1 tab PO Q12H Qty: 20 0RF No Action albuterol sulfate 90 mcg/actuation HFA aerosol inhaler 90 mcg INHALATION DAILY meloxicam [Mobic] 15 mg tablet 15 mg PO DAILY fluticasone propion-salmeterol [Advair Diskus] 250-50 mcg/dose blister with device 1 inh INHALATION BID beclomethasone dipropionate 80 mcg/actuation HFA aerosol breath activated 1 inh INHALATION BID hydrochlorothiazide 12.5 mg tablet 12.5 mg PO DAILY Qty: 30 5RF losartan 50 MG tablet 50 mg PO DAILY amlodipine 2.5 MG tablet 2.5 mg PO DAILY famotidine 20 MG tablet 20 mg PO DAILY spironolactone 25 MG tablet 25 mg PO DAILY triamcinolone acetonide 15 GM cream 1 applicatio TP TIDP PRN (Reason: Itching) 7 Days Qty: 1 0RF Rx Instructions: 0.025% cetirizine 10 MG tablet 10 mg PO HS Label Comments: TAKE ONE TABLET EVERY DAY pantoprazole 20 mg tablet,delayed release (DR/EC) 40 mg PO DAILY metoprolol tartrate 25 mg tablet 25 mg PO BID Label Comments: TAKE ONE TABLET BY MOUTH TWO TIMES A DAY metformin 500 mg tablet 500 mg PO BID Label Comments: TAKE 1 TABLET BY MOUTH TWICE DAILY simvastatin 20 mg tablet 20 mg PO DAILY Label Comments: TAKE 1 TABLET BY MOUTH ONCE DAILY aspirin 81 mg tablet,delayed release (DR/EC) 81 mg PO DAILY Referrals Follow up/Referrals: Provider,Referral, MD [Primary Care Provider] - See instructions Activity Restrictions/Add. Instructions Additional Instructions/Restrictions: Drink plenty of fluids. Take tylenol or ibuprofen for pain or fever. Take the medications as directed. Follow up with your regular doctor. GO TO THE ER FOR ANY WORSENING SYMPTOMS Clinical Impressions Clinical Impression: Acute bronchitis Instructions Patient Instructions: Acute Bronchitis, DI for Acute Bronchitis Discharge ED Provider: Seun Greenwood [facility] General Stated complaint: chest congestion Time Seen by Provider: 06/05/22 12:31 History of Present Illness Provider Complaint: She states that for the past 2 days she has had chest congestion, sore throat, and low grade fever. Related Data Home Medications Medication Instructions Recorded Confirmed cetirizine 10 mg tablet 10 mg PO HS Allergy symptoms 09/03/18 06/05/22 beclomethasone dipropionate 80 1 inh inhalation BID Breathing 11/02/19 10/13/20 mcg/actuation HFA breath activated problems aerosol fluticasone 250 mcg-salmeterol 50 1 inh inhalation BID allergies 11/02/19 10/13/20 mcg/dose blistr powdr for inhalation (Advair Diskus) meloxicam 15 mg tablet (Mobic) 15 mg PO DAILY Pain 11/02/19 06/05/22 pantoprazole 20 mg tablet,delayed 40 mg PO DAILY GERD 11/02/19 06/05/22 release amlodipine 2.5 mg tablet 2.5 mg PO DAILY High blood pressure 11/08/19 06/05/22 famotidine 20 mg tablet 20 mg PO DAILY stomach 11/08/19 06/05/22 losartan 50 mg tablet 50 mg PO DAILY htn 11/08/19 06/05/22 albuterol sulfate 90 mcg/actuation 90 mcg inhalation DAILY Breathing 11/23/19 06/05/22 aerosol inhaler problems spironolactone 25 mg tablet 25 mg PO DAILY fluid 12/05/19 06/05/22 metoprolol tartrate 25 mg tablet 25 mg PO BID Hypertension 10/13/20 06/05/22 aspirin 81 mg tablet,delayed 81 mg PO DAILY . 06/05/22 06/05/22 release metformin 500 mg tablet 500 mg PO BID Diabetes 06/05/22 06/05/22 simvastatin 20 mg tablet 20 mg PO DAILY . 06/05/22 06/05/22 Previous Rx's Medication Instructions Recorded hydrochlorothiazide 12.5 mg tablet 12.5 mg PO DAILY Fluid #30 tabs 10/13/20 triamcinolone acetonide 0
[2022-06-05 13:44] VITALS: BP 147/80; PULSE 66; RESP 20; TEMP 36.8; O2SAT 96
== END 2022-06-05 13:43 | disposition home or self-care (01) ==
PROVIDERS: Emergency Provider Nurse Practitioner Family
DX: J20.9 Acute bronchitis, unspecified (principal); R50.9 Fever, unspecified; K21.9 Gastro-esophageal reflux disease without esophagitis; I10 Essential (primary) hypertension; E11.9 Type 2 diabetes mellitus without complications; Z79.84 Long term (current) use of oral hypoglycemic drugs
CPT/HCPCS: 71046; 96372; 99212; 99214; G0463; J0696

== ENCOUNTER → 2022-09-07 13:40 | Outpatient (CLI) | payer MEDICAID, SELFPAY ==
--- NOTE | 2022-09-07 13:44 | MM_ITS ---
PROCEDURE INFORMATION: Exam: US Left Breast, Complete MG Bilateral Diagnostic Breast Tomosynthesis Exam date and time: 09/07/2022 2:36 PM Age: 62 years old Clinical indication: Redness around nipple; Left; HX of abcesses and drainage -- PT states breast red x 2 wks ago-- on antibiotics -- no reddness today. Evaluate for abscess TECHNIQUE: Imaging protocol: Complete ultrasound of all four quadrants of the left breast and the retroareolar regions, including ultrasound of the axilla when performed. Bilateral Diagnostic tomosynthesis and 2D mammography including computer-aided detection (CAD) when performed. Unilateral or bilateral exam. COMPARISON: US BREAST LT COMPLETE 11/14/2019 8:41 AM FINDINGS: MAMMOGRAPHY: The breasts are heterogeneously dense, which may obscure small masses. There is no stellate mass, architectural distortion or suspicious microcalcifications in either breast to suggest malignancy. No skin thickening or axillary adenopathy. ULTRASOUND: Sonographic images of the left breast including the retroareolar region, all 4 quadrants and the axilla do not demonstrate any solid or cystic masses. No evidence of abscess or breast edema. No focal skin thickening. Cursors were placed over normal fibroglandular structures in the lower inner quadrant. No architectural distortion or acoustical shadowing. Several axillary lymph nodes were measured and appear to contain fat. One lymph node labeled left axillary lymph node 3 appears to be somewhat over measured and likely measures 2.0 cm and has a more target-like appearance which is a normal anatomic variant. IMPRESSION: No mammographic or sonographic evidence of malignancy. No evidence of breast abscess or breast edema. Annual bilateral mammographic screening is recommended unless otherwise clinically indicated. ASSESSMENT: BI-RADS Category 1: Negative
== END ==
PROVIDERS: Visit Provider Surgery
DX: N60.09 Solitary cyst of unspecified breast (principal)
CPT/HCPCS: 76641; 77062; 77066; G0279

== ENCOUNTER 2022-10-10 13:42 | Emergency (ER) | payer MEDICAID, SELFPAY ==
[2022-10-10 13:42] VITALS: BP 152/86; PULSE 67; RESP 18; TEMP 36.7; O2SAT 98; BMI 29.7
--- NOTE | 2022-10-10 13:55 | EXP.UTC ---
Discharge Plan Disposition Patient Disposition: Home, Self-Care Condition: Good Prescriptions Prescriptions: New amoxicillin [amoxicillin] 875 mg tablet 875 mg PO Q12H Qty: 20 0RF benzonatate [benzonatate] 100 mg capsule 100 mg PO TIDP PRN (Reason: Cough) Qty: 30 0RF methylprednisolone 4 mg Tablets,Dose Pack 4 mg PO DIRECTED Qty: 21 0RF No Action albuterol sulfate 90 mcg/actuation HFA aerosol inhaler 90 mcg INHALATION DAILY fluticasone propion-salmeterol [Advair Diskus] 250-50 mcg/dose blister with device 1 inh INHALATION BID beclomethasone dipropionate 80 mcg/actuation HFA aerosol breath activated 1 inh INHALATION BID hydrochlorothiazide 12.5 mg tablet 12.5 mg PO DAILY Qty: 30 5RF losartan 50 MG tablet 50 mg PO DAILY amlodipine 2.5 MG tablet 2.5 mg PO DAILY famotidine 20 MG tablet 20 mg PO DAILY spironolactone 25 MG tablet 25 mg PO DAILY triamcinolone acetonide 15 GM cream 1 applicatio TP TIDP PRN (Reason: Itching) 7 Days Qty: 1 0RF Rx Instructions: 0.025% cetirizine 10 MG tablet 10 mg PO HS Patient Comments: TAKE ONE TABLET EVERY DAY pantoprazole 20 mg tablet,delayed release (DR/EC) 40 mg PO DAILY metoprolol tartrate 25 mg tablet 25 mg PO BID Patient Comments: TAKE ONE TABLET BY MOUTH TWO TIMES A DAY metformin 500 mg tablet 500 mg PO BID Patient Comments: TAKE 1 TABLET BY MOUTH TWICE DAILY simvastatin 20 mg tablet 20 mg PO DAILY Patient Comments: TAKE 1 TABLET BY MOUTH ONCE DAILY aspirin 81 mg tablet,delayed release (DR/EC) 81 mg PO DAILY Referrals Follow up/Referrals: Provider,Referral, MD [Primary Care Provider] - See instructions Activity Restrictions/Add. Instructions Additional Instructions/Restrictions: Drink plenty of fluids. Take tylenol or ibuprofen for pain or fever. Take the medications as directed. Follow up with your regular doctor. GO TO THE ER FOR ANY WORSENING SYMPTOMS Clinical Impressions Clinical Impression: Sinusitis, Otitis media Stand Alone Forms Stand Alone Forms: Work/School Release Instructions Patient Instructions: Sinusitis, Middle Ear Infection, DI for Sinusitis Discharge ED Provider: Seun Greenwood [facility] General Stated complaint: congestion Time Seen by Provider: 10/10/22 13:55 History of Present Illness Provider Complaint: She states that for the past 3 days she has had sore throat, sinus congestion, productive cough with yellowish sputum, low grade fever and malaise. Related Data Home Medications Medication Instructions Recorded Confirmed cetirizine 10 mg tablet 10 mg PO HS Allergy symptoms 09/03/18 09/29/22 beclomethasone dipropionate 80 1 inh inhalation BID Breathing 11/02/19 09/29/22 mcg/actuation HFA breath activated problems aerosol fluticasone 250 mcg-salmeterol 50 1 inh inhalation BID allergies 11/02/19 09/29/22 mcg/dose blistr powdr for inhalation (Advair Diskus) pantoprazole 20 mg tablet,delayed 40 mg PO DAILY GERD 11/02/19 09/29/22 release amlodipine 2.5 mg tablet 2.5 mg PO DAILY High blood pressure 11/08/19 09/29/22 famotidine 20 mg tablet 20 mg PO DAILY stomach 11/08/19 09/29/22 losartan 50 mg tablet 50 mg PO DAILY htn 11/08/19 09/29/22 albuterol sulfate 90 mcg/actuation 90 mcg inhalation DAILY Breathing 11/23/19 09/29/22 aerosol inhaler problems spironolactone 25 mg tablet 25 mg PO DAILY fluid 12/05/19 09/29/22 metoprolol tartrate 25 mg tablet 25 mg PO BID Hypertension 10/13/20 09/29/22 aspirin 81 mg tablet,delayed 81 mg PO DAILY . 06/05/22 09/29/22 release metformin 500 mg tablet 500 mg PO BID Diabetes 06/05/22 09/29/22 simvastatin 20 mg tablet 20 mg PO DAILY . 06/05/22 09/29/22 Previous Rx's Medication Instructions Recorded hydrochlorothiazide 12.5 mg tablet 12.5 mg PO DAILY Fluid #30 tabs 10/13/20 triamcinolone acetonide 0.025 % 1 applicatio topical T
[2022-10-10 14:29] VITALS: BP 152/86; PULSE 67; RESP 18; TEMP 36.7; O2SAT 98
[2022-10-10 14:36] LABS: Adenovirus,PCR Not Detected (NotDetected); Bordetella Pertussis Not Detected (NotDetected); Chlamydophila Pneumoniae, PCR Not Detected (NotDetected); Coronavirus 19, PCR Not Detected (NotDetected); Coronavirus 229E Not Detected (NotDetected); Coronavirus NL63 Not Detected (NotDetected); Coronavirus OC43 Not Detected (NotDetected); Coronovirus HKU1,PCR Not Detected (NotDetected); Human Metapneumovirus Not Detected (NotDetected); Influenza A, PCR Not Detected (NotDetected); Influenza AH1, 2009 Not Detected (NotDetected); Influenza AH1, PCR Not Detected (NotDetected); Influenza AH3,PCR Not Detected (NotDetected); Influenza B, PCR Not Detected (NotDetected); Mycoplasma Pneumoniae, PCR Not Detected (NotDetected); Parainfluenza 1, PCR Not Detected (NotDetected); Parainfluenza 2, PCR Not Detected (NotDetected); Parainfluenza 3, PCR Not Detected (NotDetected); Parainfluenza 4, PCR Not Detected (NotDetected); Respiratory Syncytial Virus Not Detected (NotDetected); Rhinovirus/Enterovirus Not Detected (NotDetected)
== END 2022-10-10 14:29 | disposition home or self-care (01) ==
PROVIDERS: Emergency Provider Nurse Practitioner Family
DX: J01.90 Acute sinusitis, unspecified (principal); H66.93 Otitis media, unspecified, bilateral; R50.9 Fever, unspecified; R53.81 Other malaise; I20.0 Unstable angina; I10 Essential (primary) hypertension
CPT/HCPCS: 87581; 87632; 87798; 99212; 99214; G0463

== ENCOUNTER 2022-12-29 08:00 | Emergency (ER) | payer MEDICAID, SELFPAY ==
[2022-12-29 08:05] VITALS: BP 150/81; PULSE 68; RESP 18; TEMP 37.1; O2SAT 98; BMI 31.6
--- NOTE | 2022-12-29 08:26 | EXP.UTC ---
Discharge Plan Disposition Patient Disposition: Home, Self-Care Condition: Good Prescriptions Prescriptions: New amoxicillin [amoxicillin] 500 mg tablet 500 mg PO BID 10 Days Qty: 20 0RF No Action albuterol sulfate 90 mcg/actuation HFA aerosol inhaler 90 mcg INHALATION DAILY fluticasone propion-salmeterol [Advair Diskus] 250-50 mcg/dose blister with device 1 inh INHALATION BID beclomethasone dipropionate 80 mcg/actuation HFA aerosol breath activated 1 inh INHALATION BID hydrochlorothiazide 12.5 mg tablet 12.5 mg PO DAILY Qty: 30 5RF losartan 50 MG tablet 50 mg PO DAILY amlodipine 2.5 MG tablet 2.5 mg PO DAILY famotidine 20 MG tablet 20 mg PO DAILY spironolactone 25 MG tablet 25 mg PO DAILY triamcinolone acetonide 15 GM cream 1 applicatio TP TIDP PRN (Reason: Itching) 7 Days Qty: 1 0RF Rx Instructions: 0.025% cetirizine 10 MG tablet 10 mg PO HS Patient Comments: TAKE ONE TABLET EVERY DAY pantoprazole 20 mg tablet,delayed release (DR/EC) 40 mg PO DAILY metoprolol tartrate 25 mg tablet 25 mg PO BID Patient Comments: TAKE ONE TABLET BY MOUTH TWO TIMES A DAY metformin 500 mg tablet 500 mg PO BID Patient Comments: TAKE 1 TABLET BY MOUTH TWICE DAILY simvastatin 20 mg tablet 20 mg PO DAILY Patient Comments: TAKE 1 TABLET BY MOUTH ONCE DAILY aspirin 81 mg tablet,delayed release (DR/EC) 81 mg PO DAILY Referrals Follow up/Referrals: Provider,Referral, MD [Primary Care Provider] - See instructions Activity Restrictions/Add. Instructions Additional Instructions/Restrictions: Start antibiotic today. Be sure to complete entire prescription even if feeling better Tylenol and ibuprofen as needed for pain or fever Humidifier/vaporizer/hot steamy shower Follow-up with primary care tomorrow. Follow-up immediately in the ER of the [facility] for new or worsening symptoms or no noticeable improvement over the next 48-72 hours. Stop smoking Clinical Impressions Clinical Impression: Bronchitis Instructions Patient Instructions: Acute Bronchitis Discharge ED Provider: Makr ([facility] [place] General Stated complaint: MAYA, chest congestion Mode of Arrival: Ambulatory Source of Information: Patient Limitations: No Limitations Time Seen by Provider: 12/29/22 08:26 Description of Symptoms (Recalled from Triage Doc. by RN): chest and head congestion HEENT Symptoms (Recalled from RN notes): Yes Resp Symptoms (Recalled from RN notes): No Skin Symptoms (Recalled from RN notes): No MS Symptoms (Recalled from RN notes): No Functional Status (Recalled from RN notes): n/a History of Present Illness Provider Complaint: 62 yr old female presents for sinus pressure, congestion, coughing up thick yellow sputum, soa and fatigue for 2 days and getting worse Related Data Home Medications Medication Instructions Recorded Confirmed cetirizine 10 mg tablet 10 mg PO HS Allergy symptoms 09/03/18 09/29/22 beclomethasone dipropionate 80 1 inh inhalation BID Breathing 11/02/19 09/29/22 mcg/actuation HFA breath activated problems aerosol fluticasone 250 mcg-salmeterol 50 1 inh inhalation BID allergies 11/02/19 09/29/22 mcg/dose blistr powdr for inhalation (Advair Diskus) pantoprazole 20 mg tablet,delayed 40 mg PO DAILY GERD 11/02/19 09/29/22 release amlodipine 2.5 mg tablet 2.5 mg PO DAILY High blood pressure 11/08/19 09/29/22 famotidine 20 mg tablet 20 mg PO DAILY stomach 11/08/19 09/29/22 losartan 50 mg tablet 50 mg PO DAILY htn 11/08/19 09/29/22 albuterol sulfate 90 mcg/actuation 90 mcg inhalation DAILY Breathing 11/23/19 09/29/22 aerosol inhaler problems spironolactone 25 mg tablet 25 mg PO DAILY fluid 12/05/19 09/29/22 metoprolol tartrate 25 mg tablet 25 mg PO BID Hypertension 10/13/20 09/29/22 aspirin 81 mg tablet,delayed 81 mg PO DAILY . 06/05/22 09/29/22 release metformin 500 mg
[2022-12-29 08:48] VITALS: BP 150/81; PULSE 68; RESP 18; TEMP 37.1; O2SAT 98
== END 2022-12-29 08:48 | disposition home or self-care (01) ==
PROVIDERS: Emergency Provider Nurse Practitioner Family
DX: J20.9 Acute bronchitis, unspecified (principal); R06.02 Shortness of breath; R51.9 Headache, unspecified; R09.89 Other specified symptoms and signs involving the circulatory and respiratory systems; R09.81 Nasal congestion; R05.9 Cough, unspecified; R53.83 Other fatigue
CPT/HCPCS: 96372; 99212; 99214; G0463

== ENCOUNTER 2023-02-15 15:51 | Emergency (ER) | payer MEDICAID, SELFPAY ==
[2023-02-15 17:05] VITALS: BP 159/90; PULSE 96; RESP 20; TEMP 37.6; O2SAT 95; BMI 29.6
[2023-02-15 17:42] VITALS: BP 159/90; PULSE 96; RESP 20; TEMP 37.6; O2SAT 92
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
[2023-02-15 17:56] LABS: UTC Influenza A Antigen Negative (Negative); UTC Influenza B Antigen Negative (Negative)
[2023-02-15 19:16] LABS: Coronavirus 19, PCR Not Detected (NotDetected); Influenza A, PCR Not Detected (NotDetected); Influenza B, PCR Not Detected (NotDetected)
== END 2023-02-15 18:08 | disposition home or self-care (01) ==
PROVIDERS: Emergency Provider Nurse Practitioner
DX: J01.90 Acute sinusitis, unspecified (principal); R51.9 Headache, unspecified; R11.0 Nausea; R09.81 Nasal congestion; R53.1 Weakness; R50.9 Fever, unspecified; H92.03 Otalgia, bilateral; R09.82 Postnasal drip; M79.18 Myalgia, other site
CPT/HCPCS: 87636; 87804; 99212; 99214; G0463

== ENCOUNTER 2023-02-16 15:56 | Outpatient (CLI) | payer MEDICAID, SELFPAY ==
[2023-02-16 16:03] LABS: Adenovirus,PCR Not Detected (NotDetected); Coronavirus 19, PCR Not Detected (NotDetected); Coronavirus 229E Not Detected (NotDetected); Coronavirus NL63 Not Detected (NotDetected); Coronavirus OC43 Not Detected (NotDetected); Coronovirus HKU1,PCR Not Detected (NotDetected); Human Metapneumovirus Not Detected (NotDetected); Influenza A, PCR Not Detected (NotDetected); Influenza AH1, 2009 Not Detected (NotDetected); Influenza AH1, PCR Not Detected (NotDetected); Influenza AH3,PCR Not Detected (NotDetected); Influenza B, PCR Not Detected (NotDetected); Parainfluenza 1, PCR Not Detected (NotDetected); Parainfluenza 2, PCR Not Detected (NotDetected); Parainfluenza 3, PCR Not Detected (NotDetected); Parainfluenza 4, PCR Not Detected (NotDetected); Respiratory Syncytial Virus Not Detected (NotDetected); Rhinovirus/Enterovirus Not Detected (NotDetected)
== END 2023-02-16 23:59 ==
LOC: LAB 15:57
PROVIDERS: PCP Family Medicine; Visit Provider Nurse Practitioner Family
DX: B97.89 Other viral agents as the cause of diseases classified elsewhere (principal); J98.8 Other specified respiratory disorders; R68.89 Other general symptoms and signs; R50.9 Fever, unspecified; R11.2 Nausea with vomiting, unspecified; R05.8 Other specified cough; H92.03 Otalgia, bilateral
CPT/HCPCS: 87632; 87635

== ENCOUNTER 2023-02-17 14:01 | Emergency (ER) | payer MEDICAID, SELFPAY ==
[2023-02-17 14:30] VITALS: BP 146/93; PULSE 85; RESP 20; TEMP 36.8; O2SAT 95; BMI 30.4
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
--- NOTE | 2023-02-17 14:54 | XR_ITS ---
FINAL REPORT CLINICAL HISTORY: sob COMPARISON: 06/05/2022 FINDINGS: Two views of the chest were obtained. The heart size and pulmonary vascularity are within normal limits. The mediastinum is normal. Right base atelectasis versus pneumonia is present. There is no pneumothorax. The bony thorax is intact. IMPRESSION: Right base atelectasis versus pneumonia. Reviewed, Interpreted and Dictated by Ady Rendon III, MD Transcribed by Gayathri Pollack Authenticated and [facility]
[2023-02-17 15:47] LABS: Coronavirus 19, PCR Not Detected (NotDetected); Influenza A, PCR Not Detected (NotDetected); Influenza B, PCR Not Detected (NotDetected)
[2023-02-17 15:58] VITALS: BP 146/93; PULSE 85; RESP 18; TEMP 36.8; O2SAT 95
== END 2023-02-17 15:45 | disposition home or self-care (01) ==
PROVIDERS: Emergency Provider Nurse Practitioner Family
DX: J40 Bronchitis, not specified as acute or chronic (principal); J01.90 Acute sinusitis, unspecified; I20.9 Angina pectoris, unspecified; R50.9 Fever, unspecified
CPT/HCPCS: 71046; 87636; 99212; 99214; G0463

== ENCOUNTER 2023-03-03 12:36 | Emergency (ER) | payer MEDICAID, SELFPAY ==
[2023-03-03 13:00] VITALS: BP 128/67; PULSE 73; RESP 20; TEMP 36.8; O2SAT 96; BMI 30.9
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
--- NOTE | 2023-03-03 13:45 | XR_ITS ---
FINAL REPORT CLINICAL HISTORY: cough, congestion COMPARISON: 02/17/2023 FINDINGS: Two views of the chest were obtained. The heart size and pulmonary vascularity are within normal limits. The mediastinum is normal. Mild bibasilar opacities likely represent atelectasis or pneumonia and are similar to the prior study. There is no pneumothorax. The bony thorax is intact. IMPRESSION: Mild bibasilar opacities, likely atelectasis or pneumonia, similar to prior. Reviewed, Interpreted and Dictated by Ady Rendon III, MD Transcribed by Joy Morales Authenticated and [facility]
[2023-03-03] MEDS: cefTRIAXone 1GM VIAL 1 GM IM (14:26)
[2023-03-03] MEDS: LIDOCAINE 1% 5ML PF VIAL IM (14:27)
[2023-03-03] MEDS: DEXAMETHASONE 4MG/ML 1ML VIAL 8 MG IM (14:27)
[2023-03-03 15:03] VITALS: BP 125/95; PULSE 81; RESP 19; TEMP 37; O2SAT 96
== END 2023-03-03 15:03 | disposition home or self-care (01) ==
PROVIDERS: Emergency Provider Nurse Practitioner Family
DX: J20.9 Acute bronchitis, unspecified (principal); I25.119 Atherosclerotic heart disease of native coronary artery with unspecified angina pectoris; I11.9 Hypertensive heart disease without heart failure; K21.9 Gastro-esophageal reflux disease without esophagitis
CPT/HCPCS: 71046; 96372; 99212; 99214; G0463; J0696

== ENCOUNTER 2023-05-06 08:04 | Emergency (ER) | payer MEDICAID, SELFPAY ==
[2023-05-06 08:10] VITALS: BP 158/78; PULSE 65; RESP 18; TEMP 36.7; O2SAT 95; BMI 27.8
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
[2023-05-06 09:09] VITALS: BP 158/78; PULSE 65; RESP 18; TEMP 36.7; O2SAT 95
== END 2023-05-06 09:09 | disposition home or self-care (01) ==
PROVIDERS: Emergency Provider Nurse Practitioner Family
DX: J01.90 Acute sinusitis, unspecified (principal); R09.81 Nasal congestion; H92.03 Otalgia, bilateral; R05.8 Other specified cough; Z56.89 Other problems related to employment
CPT/HCPCS: 87635; 99212; 99214; G0463

== ENCOUNTER 2023-10-05 13:52 | Outpatient (CLI) | payer MEDICAID, SELFPAY | END 2023-10-05 23:59 | disposition home or self-care (01) | LOC: RT 13:54 | PROVIDERS: Visit Provider Nurse Practitioner | DX: R00.2 Palpitations (principal); I11.9 Hypertensive heart disease without heart failure; I25.10 Atherosclerotic heart disease of native coronary artery without angina pectoris; R53.83 Other fatigue | CPT/HCPCS: 93270 ==

== ENCOUNTER 2023-10-09 17:53 | Emergency (ER) | payer MEDICAID, SELFPAY ==
[2023-10-09 18:57] VITALS: BP 162/86; PULSE 76; RESP 20; TEMP 36.6; O2SAT 98; BMI 29.2
--- NOTE | 2023-10-09 19:03 | EXP.UTC ---
Discharge Plan Disposition Patient Disposition: Home, Self-Care Condition: Good Prescriptions Prescriptions: New doxycycline hyclate 100 mg capsule 100 mg PO Q12 10 Days Qty: 20 0RF No Action glipizide 5 mg tablet 5 mg PO BID Patient Comments: TAKE 1 TABLET BY MOUTH TWICE DAILY amoxicillin-pot clavulanate 875-125 mg tablet 1 tab PO BID 5 Days Qty: 10 0RF losartan 50 mg tablet 50 mg PO DAILY Patient Comments: TAKE 1 TABLET BY MOUTH ONCE DAILY cetirizine 10 mg tablet 10 mg PO DAILY Patient Comments: TAKE ONE TABLET BY MOUTH EVERY DAY meloxicam 15 mg tablet 15 mg PO DAILY Patient Comments: TAKE 1 TABLET BY MOUTH ONCE DAILY cyanocobalamin (vitamin B-12) 1,000 mcg tablet 1,000 mcg PO DAILY Patient Comments: TAKE 1 TABLET BY MOUTH ONCE DAILY (DME) AthigoTouch Ultra Test Strip MISCELLANEOUS Patient Comments: USE DIRECTED aspirin 81 mg tablet,delayed release (DR/EC) 81 mg PO DAILY Patient Comments: TAKE 1 TABLET BY MOUTH ONCE DAILY spironolactone 25 mg tablet 25 mg PO DAILY Patient Comments: TAKE 1 TABLET BY MOUTH ONCE DAILY famotidine 20 mg tablet 20 mg PO DAILY Patient Comments: TAKE 1 TABLET BY MOUTH ONCE DAILY pantoprazole 40 mg tablet,delayed release (DR/EC) 40 mg PO DAILY Patient Comments: TAKE 1 TABLET BY MOUTH ONCE DAILY simvastatin 20 mg tablet 20 mg PO DAILY Patient Comments: TAKE 1 TABLET BY MOUTH ONCE DAILY metoprolol tartrate 50 mg tablet 50 mg PO DAILY Patient Comments: TAKE 1 TABLET BY MOUTH TWICE DAILY hydrochlorothiazide 25 mg tablet 25 mg PO DAILY Patient Comments: TAKE 1/2 (ONE-HALF) TABLET BY MOUTH ONCE DAILY budesonide-formoterol [Symbicort] 160-4.5 mcg/actuation HFA aerosol inhaler 2 puff INHALATION BID Patient Comments: INHALE 2 PUFFS BY MOUTH EVERY 12 HOURS ipratropium-albuterol 0.5 mg-3 mg(2.5 mg base)/3 mL solution for nebulization See Rx Instructions .ROUTE .COMPLEX Patient Comments: USE 3 ML IN NEBULIZER EVERY 6 TO 8 HOURS NEEDED FOR SHORTNESS OF BREATH FOR WHEEZING Rx Instructions: USE 3 ML IN NEBULIZER EVERY 6 TO 8 HOURS NEEDED FOR SHORTNESS OF BREATH FOR WHEEZING amlodipine 2.5 mg tablet 2.5 mg PO DAILY albuterol sulfate [Ventolin HFA] 90 mcg/actuation HFA aerosol inhaler See Rx Instructions .ROUTE .COMPLEX Patient Comments: INHALE 2 PUFFS BY MOUTH 4 TIMES DAILY Rx Instructions: INHALE 2 PUFFS BY MOUTH 4 TIMES DAILY cholecalciferol (vitamin D3) 1,250 mcg (50,000 unit) capsule See Rx Instructions .ROUTE .COMPLEX Patient Comments: TAKE 1 CAPSULE BY MOUTH ONCE EVERY MONTH Rx Instructions: TAKE 1 CAPSULE BY MOUTH ONCE EVERY MONTH guaifenesin [Mucinex] 600 mg tablet extended release 12hr 600 - 1,200 mg PO BIDP PRN (Reason: Congestion) Qty: 30 0RF Referrals Follow up/Referrals: Provider,Referral, MD [Primary Care Provider] - See instructions Activity Restrictions/Add. Instructions Additional Instructions/Restrictions: Drink plenty of fluids. Take tylenol for pain or fever. Take the medications as directed. Follow up with your regular doctor. GO TO THE ER FOR ANY WORSENING SYMPTOMS Clinical Impressions Clinical Impression: Otitis media Instructions Patient Instructions: Middle Ear Infection, Dexamethasone Injection Print Language Print Language: Haitian Discharge ED Provider: Seun Greenwood [facility] [place] General Stated complaint: congestion,ears hurting Time Seen by Provider: 10/09/23 18:58 Related Data Home Medications ?Medication ?Instructions ?Recorded ?Confirmed aspirin 81 mg tablet,delayed 81 mg PO DAILY 02/15/23 10/05/23 release blood sugar diagnostic (OneTouch 02/15/23 10/05/23 Ultra Test strips) budesonide-formoterol HFA 160 2 puff inhalation BID 02/15/23 10/05/23 mcg-4
[2023-10-09 19:35] VITALS: BP 162/86; PULSE 76; RESP 20; TEMP 36.6; O2SAT 98
== END 2023-10-09 19:35 | disposition home or self-care (01) ==
PROVIDERS: Emergency Provider Nurse Practitioner Family
DX: H66.93 Otitis media, unspecified, bilateral (principal); R09.81 Nasal congestion
CPT/HCPCS: 96372; 99212; 99214; G0463; J1100

== ENCOUNTER 2023-10-13 14:17 | Outpatient (CLI) | payer MEDICAID, SELFPAY ==
--- NOTE | 2023-10-13 | CA_ITS ---
APPROVED REPORT Exam: Exercise Treadmill Technologist: Dana Dave, Ht: 5 ft 5 in Wt: 176 lbs BSA: 1.87 m2 HR: 64 bpm BP: 152/77 mmHg Rhythm: NSR Medical History Medical History: HTN, Diabetes Medications: Amlodipine,,,,, Aspirin,,,,, Simvastatin,,,,, Losartan,,,,, Hydrochlorothiazide,,,,, Metoprolol Tartrate,,,,, Pantoprazole,,,,, Glipizide,,,,, Duoneb,,,,, SyMBICORT,,,,, Albuterol,,,,, MeLOXICAM,,,,, Allergies: peanut, loratadine, corn, tomato Cardiac Risk Factors: HTN, Diabetes Stress Test Details Test: Victorina HR Resting HR: 67 bpm Max Heart Rate (APMHR): 157 bpm Max HR Achieved: 135 bpm Target HR (85% APMHR): 133 bpm % of APMHR: 86 Recovery HR: 80 bpm HR response to stress: Normal HR response to stress BP Resting BP: 152.0/77 mmHg Max BP: 184/82 mmHg Recovery BP: 151.0/67.0 mmHg BP response to stress: Normal blood pressure response to stress. ECG Resting ECG: NSR Stress EC.[address] depression Arrhythmia: None Clinical Exercise duration: 06:12 min Highest Stage Achieved: Exercise capacity: 7.0 METs Overall Exercise Capacity for Age: Average Stress ECG Conclusion Pt exercised 6:12 on victorina protocol Max HR: 135 % of PM: 86% Max BP: 184/82 Mets: 7.0 Test stopped due to: Soa, fatigue Pt had chest tightness and dyspnea Normal ST response to exercise Conclusion: Average exercise capacity. No ischemic ECG changes at peak stress GXT only (no imaging) Test Summary REST . . . . . . . Standing REST . . . . . . . Sitting REST 04:10 0.0 0.0 67 . 152/ 77 . . Stage 1 01:00 10.0 1.7 90 . . . . Stage 1 02:00 10.0 1.7 96 . . . . Stage 1 03:00 10.0 1.7 98 . 166/ 78 . . Stage 2 01:00 12.0 2.5 108 . . . . Stage 2 02:00 12.0 2.5 135 . . . . Stage 2 03:00 12.0 2.5 117 . 184/ 82 . . Stage 3 00:12 14.0 3.4 119 . . . Stop exercise at 06:12 RECOVERY 01:00 0.0 0.0 101 . . . . RECOVERY 02:00 0.0 0.0 88 . . . . RECOVERY 03:00 0.0 0.0 77 . 173/ 74 . . RECOVERY 04:00 0.0 0.0 78 . 142/ 68 . . RECOVERY 05:00 0.0 0.0 77 . 151/ 67 . . RECOVERY 05:26 0.0 0.0 77 . 151/ 67 . . Electronically signed by : Terra Brice MD 11/01/2023 14:05:43
--- NOTE | 2023-10-13 15:00 | CA_ITS ---
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: Princess Rey RT(R) Ht: 5 ft 5 in Wt: 175lbs BSA: 1.87 BP: 154/95 mmHg Indications: Palpitations, Diastolic dysfunction, Asthma, CAD, COPD, Edema, HTN, HLD, GABRIEL 2D Dimensions LA Volume 26.90 mL LA Volume Index 14.10 mL/m2 (M/F) 16-34 EF AP4 56.50 % GL Strain -10.0 % M-Mode Dimensions RVDd 2.35 cm (0.9-2.6) LA Diam 3.77 cm (1.9-4.0) LVDd 4.88 cm (3.5-5.7) LVDs 3.55 cm (3.5-5.7) IVSd 0.81 cm (0.6-1.1) PWd 0.84 cm (0.6-1.1) EF (Teich) 52.90% FS 27.30% EDV (Teich) 111.70 mL TAPSE 1.88 (<1.7) ESV (Teich) 52.60 mL LV Diastology E Decel Time 197 (160-240 msec) E/A Ratio 1.06 Mitral Valve MV E Max David. 106.0 (40-130 cm/s) MV A Velocity 101.0 (40-130 cm/s) E/A Ratio 1.06 MV PHT 58.0 ms Left Ventricle The left ventricle is normal size. The left ventricular systolic function is normal. The left ventricular ejection fraction is within the normal range. There is increased LV wall thickness. There is normal LV segmental wall motion. Transmitral Doppler flow pattern suggests impaired LV relaxation. LVEF is 60%. Right Ventricle The right ventricle is normal size. The right ventricular systolic function is normal. Atria The left atrium size is normal. The right atrium size is normal. There is no Doppler evidence of interatrial shunt. Aortic Valve The aortic valve is mildly thickened. There is no aortic valvular stenosis. No aortic regurgitation is present. Mitral Valve The mitral valve leaflets are mildly thickened. No evidence of mitral valve stenosis. There is no mitral valve regurgitation noted. Tricuspid Valve The tricuspid valve leaflets are thin and pliable. Trace tricuspid regurgitation. There is insufficient TR jet to estimate RVSP. Pulmonic Valve The pulmonary valve is normal in structure. Trace pulmonic regurgitation. Great Vessels The aortic root is normal in size. The ascending aorta is not well-visualized. IVC is normal in size and collapses >50% with inspiration. Pericardium There is no pericardial effusion. Other Information Study Quality: Fair Conclusion Normal biventricular systolic function. No significant valvular stenosis or regurgitation. Electronically signed by : Terra Brice MD 10/19/2023 11:33:24
== END 2023-10-13 23:59 | disposition home or self-care (01) ==
LOC: RT 14:19
PROVIDERS: Visit Provider Nurse Practitioner
DX: R00.2 Palpitations (principal); R53.83 Other fatigue; I11.9 Hypertensive heart disease without heart failure; I25.10 Atherosclerotic heart disease of native coronary artery without angina pectoris
CPT/HCPCS: 93017; 93018; 93306

== ENCOUNTER 2023-11-02 10:20 | Outpatient (CLI) | payer MEDICAID, SELFPAY ==
[2023-11-02 18:52] LABS: Basophils # 0.1 K/mm3 (0-0.2); Basophils % 0.7 % (0.1-2.0); Eosinophils # 0.4 K/mm3 (0.0-0.4); Hematocrit 41.2 % (37.0-47.0); Hemoglobin 13.4 g/dL (12.2-16.2); Lymphocytes # 1.8 K/mm3 (0.7-4.5); Lymphocytes % 24.3 % (10-50); Mean Corpuscular HGB Conc 32.6 g/dL (31.8-35.4); Mean Corpuscular Hemoglobin 29.8 pg (27.0-31.2); Mean Corpuscular Volume 91.4 fl (81-99); Monocytes # 0.4 K/mm3 (0.1-1.0); Monocytes % 5.8 % (1.7-9.3); Neutrophils # 4.7 K/mm3 (1.8-7.8); Neutrophils % 64.2 % (37.0-80.0); Platelet Count 310 K/mm3 (142-424); Red Blood Count 4.51 M/mm3 (4.20-5.40); White Blood Count 7.3 K/mm3 (4.8-10.8)
[2023-11-02 19:18] LABS: Hemoglobin A1C 7.3 % (4.0-6.0)
[2023-11-02 19:41] LABS: Alanine Aminotransferase 24 U/L (12-78); Albumin Level 4.2 g/dl (3.5-5.0); Albumin/Globulin Ratio 1.6 (1.1-1.8); Alkaline Phosphatase 70 U/L (38-126); Anion Gap 13.3 mEq/L (5-15); Aspartate Amino Transferase 23 U/L (14-36); Bilirubin,Total 1.3 mg/dl (0.2-1.3); Blood Urea Nitrogen 18 mg/dl (7-17); Calcium 9.6 mg/dl (8.4-10.2); Carbon Dioxide 21 mmol/L (22.0-30.0); Chloride 110 mmol/L (98-107); Cholesterol 212 mg/dl (140-200); Estimated Glomerular Filt Rate 85 ml/min (>60); GFR (African American) 102 ML/MIN (>60); Globulin 2.7 g/dL (1.3-3.2); Glucose 233 mg/dl (74-100); HDL Cholesterol 53 mg/dl (40-60); Potassium 4.3 mmoL/L (3.5-5.1); Sodium 140 mmol/L (136-145); Total Protein,Serum 6.9 g/dl (6.3-8.2); Triglycerides 270 mg/dl (30-150); VLDL Cholesterol 54 mg/dL (0-40)
[2023-11-02 19:52] LABS: Direct LDL Cholesterol 115.91 mg/dL (100-129)
[2023-11-02 20:00] LABS: 25-OH Vitamin D, Total 25.5 ng/mL (30-100)
[2023-11-02 20:12] LABS: Thyroid Stimulating Hormone 1.07 uIU/mL (0.465-4.68)
== END 2023-11-02 23:59 | disposition home or self-care (01) ==
LOC: LAB.DROPOF 11-03 10:21
PROVIDERS: PCP Nurse Practitioner Family; Visit Provider Nurse Practitioner Family
DX: G47.33 Obstructive sleep apnea (adult) (pediatric) (principal); R53.83 Other fatigue; E11.9 Type 2 diabetes mellitus without complications; Z79.84 Long term (current) use of oral hypoglycemic drugs; Z79.85 Long-term (current) use of injectable non-insulin antidiabetic drugs
CPT/HCPCS: 80050; 80053; 80061; 82306; 83036; 84443; 85025

== ENCOUNTER → 2023-12-08 06:41 | Outpatient (CLI) | payer MEDICAID, SELFPAY | LOC: SL 06:42 | PROVIDERS: PCP Nurse Practitioner Family; Visit Provider Nurse Practitioner Family | DX: R06.83 Snoring (principal); G47.33 Obstructive sleep apnea (adult) (pediatric); R40.0 Somnolence | CPT/HCPCS: G0399 ==

== ENCOUNTER 2024-06-01 10:38 | Emergency (ER) | payer SELFPAY ==
--- NOTE | 2024-06-01 10:49 | ECG_ITS ---
APPROVED REPORT Exam: Resting ECG HR:87 bpm ECG Measurements Heart Rate 87 AXES MS 185 P 52 QRSd 86 QRS -5 QT 374 T 26 QTc 418 Conclusion SINUS RHYTHM LEFT ATRIAL ENLARGEMENT [-0.15mV P-WAVE IN V1/V2] POSSIBLE LEFT VENTRICULAR HYPERTROPHY [VOLTAGE CRITERIA PLUS LAE OR QRS WIDENING] POSSIBLE ANTERIOR MYOCARDIAL INFARCTION , OF INDETERMINATE AGE [30 ms Q WAVE IN V3/V4, OR R < 0.2 mV IN V4] ABNORMAL ECG Electronically signed by : FAVIOLA GILMORE, 06/05/2024 22:26:56
[2024-06-01 10:54] VITALS: BP 182/100; PULSE 93; RESP 18; TEMP 36.7; O2SAT 96; BMI 29.2
--- NOTE | 2024-06-01 11:04 | XR_ITS ---
FINAL REPORT CLINICAL HISTORY: Chest pain, left-sided COMPARISON: 03/03/2023 FINDINGS: A single view of the chest was obtained with the patient in lordotic positioning. The heart size is normal. The mediastinum is normal. There is no focal infiltrate or edema. There are no pleural effusions. There is no pneumothorax. There is no osseous abnormality. IMPRESSION: No acute cardiopulmonary process. Reviewed, Interpreted and Dictated by Christiano Flores MD Transcribed by Anahy Lipscomb [facility]henticated and [facility]
[2024-06-01 11:08] VITALS: BP 163/84; PULSE 81; O2SAT 94
[2024-06-01 11:15] LABS: Basophils # 0.1 K/mm3 (0-0.2); Basophils % 0.7 % (0.1-2.0); Eosinophils # 0.5 Kmm3 (0.0-0.4); Eosinophils % 7.3 % (0.1-12.0); Hematocrit 40.1 % (37.0-47.0); Hemoglobin 13.7 g/dL (12.2-16.2); Lymphocytes # 2.1 K/mm3 (0.7-4.5); Mean Corpuscular HGB Conc 34.2 g/dL (31.8-35.4); Mean Corpuscular Volume 84.8 fl (81-99); Mean Platelet Volume 10.1 fl (7.4-10.4); Monocytes # 0.5 K/mm3 (0.1-1.0); Monocytes % 6.5 % (1.7-9.3); Neutrophils # 3.9 K/mm3 (1.8-7.8); Neutrophils % 55.1 % (37.0-80.0); Nucleated Red Blood Cells # 0 10^3/uL; Nucleated Red Blood Cells % 0 %; Platelet Count 256 K/mm3 (142-424); Red Blood Count 4.73 M/mm3 (4.20-5.40); Red Cell Distribution Width 12.6 % (11.5-17.5); Red Cell Distribution Width-SD 38.5 fL
[2024-06-01] MEDS: ASPIRIN 81MG CHEWABLE TABLET 324 MG PO (11:15)
[2024-06-01] MEDS: NITROGLYCERIN 0.4MG SL TABLET 0.4 MG SL (11:16)
[2024-06-01 11:17] LABS: Albumin Level 4.4 g/dl (3.5-5.0); Chloride 107 mmol/L (98-107); Potassium 3.8 mmoL/L (3.5-5.1); Sodium 140 mmol/L (136-145)
[2024-06-01 11:19] LABS: Blood Urea Nitrogen 11 mg/dl (7-17); Creatinine Clearance Estimated 75 mL/min (50-200); Estimated Glomerular Filt Rate 101 ml/min (>60); GFR (African American) 122 ML/MIN (>60)
[2024-06-01 11:20] LABS: Alanine Aminotransferase 39 U/L (12-78); Albumin/Globulin Ratio 1.6 (1.1-1.8); Alkaline Phosphatase 74 U/L (38-126); Anion Gap 13.8 mEq/L (5-15); Aspartate Amino Transferase 39 U/L (14-36); Bilirubin,Total 1.6 mg/dl (0.2-1.3); Calcium 9.3 mg/dl (8.4-10.2); Carbon Dioxide 23 mmol/L (22.0-30.0); Globulin 2.7 g/dL (1.3-3.2); Glucose 193 mg/dl (74-100); Lipase 84 U/L (23-300); Total Protein,Serum 7.1 g/dl (6.3-8.2)
[2024-06-01 11:25] LABS: Activated Partial Thrombo Time 25.3 seconds (22.8-30.6)
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
[2024-06-01 11:29] LABS: INR 0.93 (0.9-1.1); Prothrombin Time 10.5 seconds (10.1-12.5)
[2024-06-01 11:32] LABS: Troponin I < 0.01 ng/ml (0.00-0.034)
--- NOTE | 2024-06-01 11:42 | PC.NURSE ---
per pavan solano repeat troponin can be discontinued
[2024-06-01 11:43] LABS: D-Dimer 0.74 ug/mL (0.0-0.5)
[2024-06-01 11:45] VITALS: PULSE 74
[2024-06-01 12:09] VITALS: BP 144/85; PULSE 73; RESP 20; TEMP 36.7; O2SAT 95
[2024-06-01 12:16] LABS: HIV Combo NEGATIVE (Negative)
[2024-06-01 12:24] LABS: Hepatitis C Ab Qual. W/ RFX NEGATIVE (Negative)
== END 2024-06-01 12:16 | disposition home or self-care (01) ==
PROVIDERS: Emergency Provider Emergency Medicine
DX: R07.89 Other chest pain (principal); I10 Essential (primary) hypertension; Z11.59 Encounter for screening for other viral diseases; Z11.4 Encounter for screening for human immunodeficiency virus [HIV]
CPT/HCPCS: 71045; 80053; 83690; 84484; 85025; 85378; 85610; 85730; 86803; 87389; 93005; 99285